=== PATIENT | female | born 1930 | race African-American/Black ===

== ENCOUNTER 2016-07-03 12:59 | Inpatient (IN) | payer MEDICARE, BC ==
[~2016-07-03] VITALS: Ht 162.6 cm; Wt 65.8 kg
[2016-07-03 13:54] VITALS: BP 144/93
[2016-07-03 14:00] VITALS: BP 144/93
[2016-07-03] MEDS: FUROSEMIDE 20MG/2ML VIAL IVP SCH ×2 (15:51→21:58)
[2016-07-03 16:00] VITALS: BP 167/108
[2016-07-03] MEDS ORDERED: IPRATROPIUM/ALBUTEROL 0.5-3(2.5)MG/3ML NEB HHN PRN (16:00)
[2016-07-03] MEDS ORDERED: CLONIDINE 0.1MG TABLET PO PRN (16:30)
[2016-07-03] MEDS ORDERED: APIXABAN 5 MG TABLET PO SCH (17:15)
[2016-07-03] MEDS: AMLODIPINE 5MG TABLET PO SCH (17:17)
[2016-07-03 17:22] LABS: BASOPHILS % 0.6 % (0.0-2.0); EOSINOPHILS % 0.5 % (0.0-5.0); HEMATOCRIT. 38.3 % (36.0-48.0); HEMOGLOBIN. 12.7 g/dL (12.0-16.0); LYMPHOCYTES % 9.3 % (20.0-50.0); MEAN CORPUSCULAR HGB CONC 33.2 g/dL (31.0-37.0); MEAN CORPUSCULAR VOLUME 93.5 fL (81.0-99.0); MEAN PLATELET VOLUME 9.2 fl (7.4-10.4); MONOCYTES % 8.4 % (2.0-8.0); NEUTROPHILS % 81.2 % (40.0-76.0); PLATELET 192 x1000/uL (130-400); WHITE BLOOD COUNT 7.4 x1000/uL (4.5-11.0)
[2016-07-03 17:35] LABS: ALANINE AMINOTRANSFERASE 30 IU/L (13-61); ALBUMIN 3.1 g/dL (3.4-5.0); ANION GAP 12; CALCIUM 8.7 mg/dL (8.5-10.1); CARBON DIOXIDE 33 mEq/L (21-32); CHLORIDE 101 mEq/L (98-107); INDEX HEMOLYSI 1 (1-3); INDEX ICTERIC 1 (1-4); INDEX LIPEMIC 1 (1-3); NT PRO B-TYPE NATRIURETIC PEP 4775 pg/mL (5-125); UREA NITROGEN BLOOD 16 mg/dL (7-21); eGFR > 60 mL/min (>60)
[2016-07-03] MEDS: DILTIAZEM HCL 30MG TABLET PO SCH ×2 (17:37→21:59)
[2016-07-03] MEDS: POTASSIUM CHLORIDE 20MEQ TABLET SR PO SCH (18:44)
[2016-07-03] MEDS: APIXABAN 2.5 MG TABLET PO SCH (18:44)
[2016-07-03 20:00] VITALS: BP 115/79
[2016-07-03] MEDS ORDERED: DILTIAZEM HCL 30MG TABLET PO SCH (21:00)
[2016-07-03] MEDS ORDERED: MONTELUKAST SODIUM 10MG TABLET PO SCH (21:00)
[2016-07-03] MEDS: MONTELUKAST SODIUM 10MG TABLET PO SCH (21:59)
[2016-07-04] VITALS: BP 130/86
[2016-07-04 04:00] VITALS: BP 130/76
[2016-07-04 08:14] VITALS: BP 144/91
[2016-07-04] MEDS: AMLODIPINE 5MG TABLET PO SCH (08:24)
[2016-07-04] MEDS: POTASSIUM CHLORIDE 20MEQ TABLET SR PO SCH (08:24)
[2016-07-04] MEDS: APIXABAN 2.5 MG TABLET PO SCH ×2 (08:25→16:18)
[2016-07-04] MEDS: DILTIAZEM HCL 30MG TABLET PO SCH ×2 (08:25→20:40)
[2016-07-04] MEDS: EZETIMIBE 10MG TABLET PO SCH (08:25)
[2016-07-04] MEDS ORDERED: APIXABAN 5 MG TABLET PO SCH (09:00)
[2016-07-04] MEDS ORDERED: EZETIMIBE 10MG TABLET PO SCH (09:00)
[2016-07-04 12:00] VITALS: BP 100/51
[2016-07-04] MEDS: CEFTRIAXONE 1 G PREMIX 50 ML IV SCH (13:30)
[2016-07-04] MEDS: AZITHROMYCIN 500 MG in DEXT 5% WATER 250 ML IV SCH (15:50)
[2016-07-04 16:20] VITALS: BP 119/80
[2016-07-04 20:00] VITALS: BP 118/68
[2016-07-04] MEDS: MONTELUKAST SODIUM 10MG TABLET PO SCH (20:39)
[2016-07-04] MEDS: PRIMIDONE 50MG TABLET PO SCH (20:41)
[2016-07-05] VITALS: BP 121/77
[2016-07-05 04:00] VITALS: BP 142/98
[2016-07-05 08:24] VITALS: BP 147/88
[2016-07-05] MEDS: POTASSIUM CHLORIDE 20MEQ TABLET SR PO SCH (08:31)
[2016-07-05] MEDS: APIXABAN 2.5 MG TABLET PO SCH ×2 (08:31→16:26)
[2016-07-05] MEDS: DILTIAZEM HCL 30MG TABLET PO SCH ×2 (08:31→20:12)
[2016-07-05] MEDS: FUROSEMIDE 20MG/2ML VIAL IVP SCH (08:31)
[2016-07-05] MEDS: EZETIMIBE 10MG TABLET PO SCH (08:31)
[2016-07-05] MEDS: AMLODIPINE 5MG TABLET PO SCH (08:31)
[2016-07-05] MEDS: AZITHROMYCIN 500 MG in DEXT 5% WATER 250 ML IV SCH (09:46)
[2016-07-05] MEDS: IPRATROPIUM/ALBUTEROL 0.5-3(2.5)MG/3ML NEB HHN SCH ×3 (11:42→20:48)
[2016-07-05] MEDS: CEFTRIAXONE 1 G PREMIX 50 ML IV SCH (11:53)
[2016-07-05 12:00] VITALS: BP 100/66
[2016-07-05] MEDS ORDERED: CELE200C PO (13:19)
[2016-07-05 16:00] VITALS: BP 102/56
[2016-07-05 17:57] LABS: BASOPHILS % 0.5 % (0.0-2.0); HEMATOCRIT. 36.7 % (36.0-48.0); LYMPHOCYTES % 14.8 % (20.0-50.0); MEAN CORPUSCULAR HEMOGLOBIN 30.6 pg (28.0-32.0); MEAN CORPUSCULAR HGB CONC 32.7 g/dL (31.0-37.0); MEAN CORPUSCULAR VOLUME 93.7 fL (81.0-99.0); MONOCYTES % 14.9 % (2.0-8.0); NEUTROPHILS % 68.8 % (40.0-76.0); PLATELET 193 x1000/uL (130-400); RED BLOOD CELL COUNT 3.92 mill/uL (4.2-5.4); RED CELL DISTRIBUTION WIDTH 16.6 % (11.6-14.6); WHITE BLOOD COUNT 7.1 x1000/uL (4.5-11.0)
[2016-07-05 18:14] LABS: ANION GAP 9; CALCIUM 8.3 mg/dL (8.5-10.1); CARBON DIOXIDE 36 mEq/L (21-32); CHLORIDE 99 mEq/L (98-107); INDEX HEMOLYSI 1 (1-3); INDEX ICTERIC 1 (1-4); INDEX LIPEMIC 1 (1-3); UREA NITROGEN BLOOD 15 mg/dL (7-21); eGFR > 60 mL/min (>60)
[2016-07-05 20:00] VITALS: BP 97/51
[2016-07-05] MEDS: MONTELUKAST SODIUM 10MG TABLET PO SCH (20:11)
[2016-07-05] MEDS: PRIMIDONE 50MG TABLET PO SCH (20:11)
[2016-07-06] VITALS: BP 110/66
[2016-07-06] MEDS: IPRATROPIUM/ALBUTEROL 0.5-3(2.5)MG/3ML NEB HHN SCH ×5 (00:36→15:52)
[2016-07-06 04:00] VITALS: BP 119/83
[2016-07-06 06:41] LABS: BASOPHILS % 0.9 % (0.0-2.0); EOSINOPHILS % 1.6 % (0.0-5.0); HEMATOCRIT. 36.6 % (36.0-48.0); HEMOGLOBIN. 12.1 g/dL (12.0-16.0); LYMPHOCYTES % 15.6 % (20.0-50.0); MEAN CORPUSCULAR HEMOGLOBIN 30.8 pg (28.0-32.0); MEAN CORPUSCULAR HGB CONC 33.2 g/dL (31.0-37.0); MEAN CORPUSCULAR VOLUME 92.6 fL (81.0-99.0); MONOCYTES % 12.8 % (2.0-8.0); NEUTROPHILS % 69.1 % (40.0-76.0); PLATELET 182 x1000/uL (130-400); RED BLOOD CELL COUNT 3.95 mill/uL (4.2-5.4); RED CELL DISTRIBUTION WIDTH 16.5 % (11.6-14.6); WHITE BLOOD COUNT 5.8 x1000/uL (4.5-11.0)
[2016-07-06 07:06] LABS: ANION GAP 10; CALCIUM 8.2 mg/dL (8.5-10.1); CARBON DIOXIDE 34 mEq/L (21-32); CHLORIDE 97 mEq/L (98-107); INDEX HEMOLYSI 1 (1-3); INDEX ICTERIC 1 (1-4); INDEX LIPEMIC 1 (1-3); UREA NITROGEN BLOOD 16 mg/dL (7-21); eGFR > 60 mL/min (>60)
[2016-07-06 08:00] VITALS: BP 122/84
[2016-07-06] MEDS: AMLODIPINE 5MG TABLET PO SCH (08:54)
[2016-07-06] MEDS: POTASSIUM CHLORIDE 20MEQ TABLET SR PO SCH (08:54)
[2016-07-06] MEDS: EZETIMIBE 10MG TABLET PO SCH (08:54)
[2016-07-06] MEDS: FUROSEMIDE 20MG/2ML VIAL IVP SCH (08:55)
[2016-07-06] MEDS: DILTIAZEM HCL 30MG TABLET PO SCH (08:55)
[2016-07-06] MEDS: APIXABAN 2.5 MG TABLET PO SCH ×2 (08:55→17:20)
[2016-07-06] MEDS: AZITHROMYCIN 500 MG in DEXT 5% WATER 250 ML IV SCH (08:56)
[2016-07-06] MEDS ORDERED: PRIMIDONE 50MG TABLET PO SCH (09:00)
[2016-07-06] MEDS: CEFTRIAXONE 1 G PREMIX 50 ML IV SCH (10:24)
[2016-07-06 16:00] VITALS: BP 100/62
[2016-07-06 16:30] VITALS: BP 100/62
== END 2016-07-06 17:15 | DRG 682 ==
LOC: 7EST 12:59 → 5WST 07-04 11:02
PROVIDERS: ADMIT Internal Medicine; ATTEND Internal Medicine
DX: N17.9 Acute kidney failure, unspecified (principal); J18.9 Pneumonia, unspecified organism; G45.9 Transient cerebral ischemic attack, unspecified; J44.0 Chronic obstructive pulmonary disease with (acute) lower respiratory infection; E78.00 Pure hypercholesterolemia, unspecified; E78.5 Hyperlipidemia, unspecified; M81.0 Age-related osteoporosis without current pathological fracture; J45.909 Unspecified asthma, uncomplicated; I50.9 Heart failure, unspecified; F03.90 Unspecified dementia, unspecified severity, without behavioral disturbance, psychotic disturbance, mood disturbance, and anxiety; M19.90 Unspecified osteoarthritis, unspecified site; J44.9 Chronic obstructive pulmonary disease, unspecified; I48.2 Chronic atrial fibrillation; J31.0 Chronic rhinitis; Z86.73 Personal history of transient ischemic attack (TIA), and cerebral infarction without residual deficits; Z91.19 Patient's noncompliance with other medical treatment and regimen; Z85.3 Personal history of malignant neoplasm of breast
CPT/HCPCS: 36415; 70551; 71010; 80048; 80053; 83880; 85025; 92523; 93970; 94640; 97116; 97162; 97166; 97530; 97535; A6261; J0456; J0696; J1940; J7040; J7060; J7620

== ENCOUNTER 2017-01-16 19:19 | Inpatient (IN) | payer MEDICARE, BC ==
[~2017-01-16] VITALS: Ht 162.6 cm; Wt 53.5 kg
[~2017-01-16 19:19] MED LIST: APIX2.5T PO; CELE200C PO; DILT30TA3 PO; EZET10TA26 PO; FURO-152 PO; OMEP40CA34 PO; POTA-9 PO
[2017-01-16 22:23] LABS: HEMATOCRIT. 37.9 % (36.0-48.0); HEMOGLOBIN. 12.1 g/dL (12.0-16.0); MEAN CORPUSCULAR HEMOGLOBIN 27.9 pg (28.0-32.0); MEAN CORPUSCULAR VOLUME 87.4 fL (81.0-99.0); MEAN PLATELET VOLUME 8.8 fl (7.4-10.4); PLATELET 218 x1000/uL (130-400); RED BLOOD CELL COUNT 4.34 mill/uL (4.2-5.4); RED CELL DISTRIBUTION WIDTH 18.6 % (11.6-14.6)
[2017-01-16 22:25] LABS: CHLORIDE 103 mEq/L (98-107)
[2017-01-16 22:26] LABS: INR 1.3; PROTHROMBIN TIME 13.4 sec (9.4-11.6)
[2017-01-16 22:29] LABS: CARBON DIOXIDE 30 mEq/L (21-32)
[2017-01-16 22:47] LABS: PLATELET ESTIMATE NORMAL
[2017-01-16] MEDS ORDERED: AMPICILLIN SOD/SULBACTAM NA 3 G in SODIUM CHLORIDE 0.9% 100 ML IV SCH (23:00)
[2017-01-17] MEDS: HYDROCODONE/ACETAMINOPHEN 10/325MG TABLET PO PRN (04:03)
[2017-01-17 05:00] VITALS: BP 111/53
[2017-01-17 06:00] VITALS: BP 111/53
[2017-01-17] MEDS ORDERED: IPRATROPIUM/ALBUTEROL 0.5-3(2.5)MG/3ML NEB HHN PRN (07:45)
[2017-01-17 08:00] VITALS: BP 104/64
[2017-01-17] MEDS: EZETIMIBE 10MG TABLET PO SCH (08:32)
[2017-01-17] MEDS: APIXABAN 2.5 MG TABLET PO SCH ×2 (08:32→17:27)
[2017-01-17] MEDS: FUROSEMIDE 20MG/2ML VIAL IVP SCH (08:32)
[2017-01-17] MEDS: CELECOXIB 200MG CAPSULE PO SCH ×2 (08:32→17:27)
[2017-01-17] MEDS: DILTIAZEM HCL 30MG TABLET PO SCH ×2 (09:00→21:00)
[2017-01-17] MEDS: POTASSIUM CHLORIDE 10MEQ TABLET SR PO SCH (09:00)
[2017-01-17] MEDS: CEFTRIAXONE 1 G PREMIX 50 ML IV SCH (10:04)
[2017-01-17 12:00] VITALS: BP 112/64
[2017-01-17 16:00] VITALS: BP 105/62
[2017-01-17 20:18] VITALS: BP 104/60
[2017-01-17] MEDS: SILVER SULFADIAZINE 1% CREAM 50GM TOP SCH (21:59)
[2017-01-18 00:29] VITALS: BP 108/72
[2017-01-18 04:00] VITALS: BP 103/64
[2017-01-18] MEDS: HYDROCODONE/ACETAMINOPHEN 10/325MG TABLET PO PRN ×2 (05:01→20:14)
[2017-01-18 07:00] LABS: HEMATOCRIT. 36.8 % (36.0-48.0); MEAN CORPUSCULAR HEMOGLOBIN 27.9 pg (28.0-32.0); MEAN CORPUSCULAR VOLUME 85.5 fL (81.0-99.0); PLATELET 191 x1000/uL (130-400); RED BLOOD CELL COUNT 4.31 mill/uL (4.2-5.4); RED CELL DISTRIBUTION WIDTH 18.1 % (11.6-14.6)
[2017-01-18 08:00] VITALS: BP 101/59
[2017-01-18 08:09] LABS: CARBON DIOXIDE 30 mEq/L (21-32); CHLORIDE 102 mEq/L (98-107)
[2017-01-18] MEDS: CELECOXIB 200MG CAPSULE PO SCH ×2 (08:44→17:14)
[2017-01-18] MEDS: APIXABAN 2.5 MG TABLET PO SCH ×2 (08:45→17:14)
[2017-01-18] MEDS: EZETIMIBE 10MG TABLET PO SCH (08:45)
[2017-01-18] MEDS: FUROSEMIDE 20MG/2ML VIAL IVP SCH (08:45)
[2017-01-18] MEDS: SILVER SULFADIAZINE 1% CREAM 50GM TOP SCH (08:45)
[2017-01-18] MEDS: CEFTRIAXONE 1 G PREMIX 50 ML IV SCH (08:45)
[2017-01-18] MEDS: POTASSIUM CHLORIDE 10MEQ TABLET SR PO SCH (08:45)
[2017-01-18] MEDS: DILTIAZEM HCL 30MG TABLET PO SCH ×2 (08:46→21:00)
[2017-01-18 12:00] VITALS: BP 102/56
[2017-01-18 14:29] LABS: PLATELET ESTIMATE NORMAL
[2017-01-18 16:00] VITALS: BP 116/58
[2017-01-18 20:00] VITALS: BP 110/56
[2017-01-19] VITALS: BP 102/53
[2017-01-19 04:00] VITALS: BP 100/48
[2017-01-19] MEDS: HYDROCODONE/ACETAMINOPHEN 10/325MG TABLET PO PRN ×3 (04:13→21:17)
[2017-01-19 07:34] LABS: HEMATOCRIT. 36.2 % (36.0-48.0); HEMOGLOBIN. 11.8 g/dL (12.0-16.0); MEAN CORPUSCULAR VOLUME 86.2 fL (81.0-99.0); MEAN PLATELET VOLUME 9.2 fl (7.4-10.4); PLATELET 195 x1000/uL (130-400); RED CELL DISTRIBUTION WIDTH 18.3 % (11.6-14.6)
[2017-01-19 08:00] VITALS: BP 104/63
[2017-01-19 08:09] LABS: CARBON DIOXIDE 29 mEq/L (21-32); CHLORIDE 103 mEq/L (98-107)
[2017-01-19] MEDS: DILTIAZEM HCL 30MG TABLET PO SCH ×2 (09:00→21:17)
[2017-01-19] MEDS: APIXABAN 2.5 MG TABLET PO SCH ×2 (09:42→19:26)
[2017-01-19] MEDS: FUROSEMIDE 20MG/2ML VIAL IVP SCH (09:42)
[2017-01-19] MEDS: EZETIMIBE 10MG TABLET PO SCH (09:42)
[2017-01-19] MEDS: CEFTRIAXONE 1 G PREMIX 50 ML IV SCH (09:43)
[2017-01-19] MEDS: POTASSIUM CHLORIDE 10MEQ TABLET SR PO SCH (09:43)
[2017-01-19] MEDS: SILVER SULFADIAZINE 1% CREAM 50GM TOP SCH (09:50)
[2017-01-19] MEDS: CELECOXIB 200MG CAPSULE PO SCH ×2 (09:50→19:26)
[2017-01-19 12:00] VITALS: BP 100/68
[2017-01-19 16:00] VITALS: BP 104/62
[2017-01-19 20:00] VITALS: BP 117/70
[2017-01-19 22:51] LABS: PLATELET ESTIMATE NORMAL
[2017-01-20] VITALS: BP 114/56
[2017-01-20 04:00] VITALS: BP 94/55
[2017-01-20 07:20] LABS: HEMATOCRIT. 35.9 % (36.0-48.0); HEMOGLOBIN. 11.6 g/dL (12.0-16.0); MEAN CORPUSCULAR HEMOGLOBIN 27.9 pg (28.0-32.0); MEAN CORPUSCULAR VOLUME 86.6 fL (81.0-99.0); MEAN PLATELET VOLUME 9.4 fl (7.4-10.4); PLATELET 198 x1000/uL (130-400); RED BLOOD CELL COUNT 4.15 mill/uL (4.2-5.4); RED CELL DISTRIBUTION WIDTH 17.9 % (11.6-14.6)
[2017-01-20 08:00] VITALS: BP 127/74
[2017-01-20 08:43] LABS: CARBON DIOXIDE 30 mEq/L (21-32); CHLORIDE 102 mEq/L (98-107); PHOSPHORUS 3.1 mg/dL (2.5-4.9)
[2017-01-20 10:03] LABS: PLATELET ESTIMATE NORMAL
[2017-01-20] MEDS: CELECOXIB 200MG CAPSULE PO SCH ×2 (10:51→17:45)
[2017-01-20] MEDS: CEFTRIAXONE 1 G PREMIX 50 ML IV SCH (10:51)
[2017-01-20] MEDS: FUROSEMIDE 20MG/2ML VIAL IVP SCH (10:52)
[2017-01-20] MEDS: POTASSIUM CHLORIDE 10MEQ TABLET SR PO SCH (10:52)
[2017-01-20] MEDS: DILTIAZEM HCL 30MG TABLET PO SCH ×2 (10:52→20:13)
[2017-01-20] MEDS: EZETIMIBE 10MG TABLET PO SCH (10:53)
[2017-01-20] MEDS: APIXABAN 2.5 MG TABLET PO SCH ×2 (10:53→17:45)
[2017-01-20] MEDS: SILVER SULFADIAZINE 1% CREAM 50GM TOP SCH (10:54)
[2017-01-20 12:00] VITALS: BP 114/67
[2017-01-20] MEDS: HYDROCODONE/ACETAMINOPHEN 10/325MG TABLET PO PRN (12:28)
[2017-01-20] MEDS ORDERED: VANCOMYCIN 1 G PREMIX 200 ML IV SCH ×2 (13:00→15:00)
[2017-01-20 16:00] VITALS: BP 99/56
[2017-01-20 20:00] VITALS: BP 114/52
[2017-01-20 23:38] LABS: CLARITY URINE CLOUDY (CLEAR); COLOR URINE DARK YELLOW (YELLOW); GLUCOSE URINE NEGATIVE (NEGATIVE); KETONES URINE NEGATIVE (NEGATIVE); LEUKOCYTE ESTERASE URINE NEGATIVE (NEGATIVE); NITRITE URINE NEGATIVE (NEGATIVE); OCCULT BLOOD URINE NEGATIVE (NEGATIVE); PROTEIN URINE 1+ (NEGATIVE)
[2017-01-21] VITALS: BP 112/61
[2017-01-21 04:00] VITALS: BP 95/61
[2017-01-21] MEDS: VANCOMYCIN 750 MG PREMIX 150 ML IV SCH ×2 (05:21→23:45)
[2017-01-21 08:00] VITALS: BP 128/83
[2017-01-21] MEDS: FUROSEMIDE 20MG/2ML VIAL IVP SCH (09:25)
[2017-01-21] MEDS: CELECOXIB 200MG CAPSULE PO SCH ×2 (09:25→18:57)
[2017-01-21] MEDS: CEFTRIAXONE 1 G PREMIX 50 ML IV SCH (09:25)
[2017-01-21] MEDS: EZETIMIBE 10MG TABLET PO SCH (09:26)
[2017-01-21] MEDS: POTASSIUM CHLORIDE 10MEQ TABLET SR PO SCH (09:26)
[2017-01-21] MEDS: APIXABAN 2.5 MG TABLET PO SCH ×2 (09:26→18:57)
[2017-01-21] MEDS: DILTIAZEM HCL 30MG TABLET PO SCH ×2 (09:26→20:36)
[2017-01-21] MEDS: SILVER SULFADIAZINE 1% CREAM 50GM TOP SCH (09:33)
[2017-01-21 12:00] VITALS: BP 96/44
[2017-01-21 12:07] LABS: HEMATOCRIT. 35.4 % (36.0-48.0); HEMOGLOBIN. 11.6 g/dL (12.0-16.0); MEAN CORPUSCULAR VOLUME 85.7 fL (81.0-99.0); MEAN PLATELET VOLUME 8.9 fl (7.4-10.4); PLATELET 229 x1000/uL (130-400); RED BLOOD CELL COUNT 4.13 mill/uL (4.2-5.4); RED CELL DISTRIBUTION WIDTH 17.9 % (11.6-14.6)
[2017-01-21 12:44] LABS: CARBON DIOXIDE 32 mEq/L (21-32); CHLORIDE 100 mEq/L (98-107)
[2017-01-21 12:47] LABS: PLATELET ESTIMATE NORMAL
[2017-01-21 16:00] VITALS: BP 111/57
[2017-01-21 20:00] VITALS: BP 116/61
[2017-01-22] VITALS: BP 122/69
[2017-01-22 04:00] VITALS: BP 123/67
[2017-01-22 07:24] LABS: CARBON DIOXIDE 28 mEq/L (21-32); CHLORIDE 98 mEq/L (98-107)
[2017-01-22 07:39] LABS: HEMATOCRIT. 37.1 % (36.0-48.0); MEAN CORPUSCULAR HEMOGLOBIN 28.1 pg (28.0-32.0); MEAN CORPUSCULAR VOLUME 86.8 fL (81.0-99.0); MEAN PLATELET VOLUME 9.1 fl (7.4-10.4); PLATELET 232 x1000/uL (130-400); RED BLOOD CELL COUNT 4.27 mill/uL (4.2-5.4); RED CELL DISTRIBUTION WIDTH 18.2 % (11.6-14.6)
[2017-01-22 08:00] VITALS: BP 110/62
[2017-01-22] MEDS: CELECOXIB 200MG CAPSULE PO SCH ×2 (09:25→17:14)
[2017-01-22] MEDS: DILTIAZEM HCL 30MG TABLET PO SCH ×2 (09:25→20:47)
[2017-01-22] MEDS: SILVER SULFADIAZINE 1% CREAM 50GM TOP SCH (09:25)
[2017-01-22] MEDS: APIXABAN 2.5 MG TABLET PO SCH ×2 (09:25→17:14)
[2017-01-22] MEDS: EZETIMIBE 10MG TABLET PO SCH (09:25)
[2017-01-22] MEDS: CEFTRIAXONE 1 G PREMIX 50 ML IV SCH (09:25)
[2017-01-22 12:00] VITALS: BP 100/53
[2017-01-22 13:22] LABS: PLATELET ESTIMATE NORMAL
[2017-01-22 16:00] VITALS: BP 118/68
[2017-01-22] MEDS: VANCOMYCIN 750 MG PREMIX 150 ML IV SCH (17:14)
[2017-01-22 20:00] VITALS: BP 103/54
[2017-01-23] VITALS: BP 110/76
[2017-01-23 04:00] VITALS: BP 107/64
[2017-01-23 05:26] LABS: HEMATOCRIT. 34.3 % (36.0-48.0); MEAN CORPUSCULAR HEMOGLOBIN 27.8 pg (28.0-32.0); MEAN CORPUSCULAR VOLUME 86.3 fL (81.0-99.0); MEAN PLATELET VOLUME 8.6 fl (7.4-10.4); PLATELET 251 x1000/uL (130-400); RED BLOOD CELL COUNT 3.98 mill/uL (4.2-5.4); RED CELL DISTRIBUTION WIDTH 18.1 % (11.6-14.6)
[2017-01-23 06:25] LABS: CARBON DIOXIDE 31 mEq/L (21-32); CHLORIDE 100 mEq/L (98-107)
[2017-01-23 06:28] LABS: PHOSPHORUS 2.6 mg/dL (2.5-4.9)
[2017-01-23 08:00] VITALS: BP 109/69
[2017-01-23] MEDS: APIXABAN 2.5 MG TABLET PO SCH ×2 (08:58→16:43)
[2017-01-23] MEDS: EZETIMIBE 10MG TABLET PO SCH (08:58)
[2017-01-23] MEDS: CEFTRIAXONE 1 G PREMIX 50 ML IV SCH (08:58)
[2017-01-23] MEDS: CELECOXIB 200MG CAPSULE PO SCH ×2 (08:58→16:43)
[2017-01-23] MEDS: DILTIAZEM HCL 30MG TABLET PO SCH ×2 (09:00→21:31)
[2017-01-23] MEDS: SILVER SULFADIAZINE 1% CREAM 50GM TOP SCH (09:00)
[2017-01-23] MEDS: VANCOMYCIN 750 MG PREMIX 150 ML IV SCH (11:31)
[2017-01-23 12:00] VITALS: BP 117/67
[2017-01-23 16:00] VITALS: BP 107/62
[2017-01-23 20:00] VITALS: BP 121/88
[2017-01-23 22:57] LABS: PLATELET ESTIMATE NORMAL
[2017-01-24 00:01] VITALS: BP 101/54
[2017-01-24] MEDS ORDERED: MORPHINE SULFATE 4 MG/ML CPJ (NOT FOR IM USE) IV PRN (02:45)
[2017-01-24] MEDS ORDERED: ACETAMINOPHEN 325MG TABLET PO PRN (02:45)
[2017-01-24 04:00] VITALS: BP 108/59
[2017-01-24] MEDS: VANCOMYCIN 750 MG PREMIX 150 ML IV SCH (05:14)
[2017-01-24 07:24] LABS: CARBON DIOXIDE 32 mEq/L (21-32); CHLORIDE 102 mEq/L (98-107)
[2017-01-24 07:44] LABS: HEMATOCRIT. 35.3 % (36.0-48.0); HEMOGLOBIN. 11.3 g/dL (12.0-16.0); MEAN CORPUSCULAR HEMOGLOBIN 27.9 pg (28.0-32.0); MEAN CORPUSCULAR VOLUME 87.2 fL (81.0-99.0); MEAN PLATELET VOLUME 8.9 fl (7.4-10.4); PLATELET 246 x1000/uL (130-400); RED BLOOD CELL COUNT 4.05 mill/uL (4.2-5.4); RED CELL DISTRIBUTION WIDTH 18.3 % (11.6-14.6)
[2017-01-24 08:00] VITALS: BP 111/68
[2017-01-24] MEDS: APIXABAN 2.5 MG TABLET PO SCH ×2 (08:23→17:35)
[2017-01-24] MEDS: CEFTRIAXONE 1 G PREMIX 50 ML IV SCH (08:23)
[2017-01-24] MEDS: TRAMADOL 50MG TABLET PO PRN (08:25)
[2017-01-24] MEDS: EZETIMIBE 10MG TABLET PO SCH (08:25)
[2017-01-24] MEDS: CELECOXIB 200MG CAPSULE PO SCH ×2 (08:25→17:35)
[2017-01-24] MEDS: SILVER SULFADIAZINE 1% CREAM 50GM TOP SCH (08:26)
[2017-01-24] MEDS: DILTIAZEM HCL 30MG TABLET PO SCH ×2 (08:26→20:42)
[2017-01-24 12:00] VITALS: BP 97/48
[2017-01-24 14:21] LABS: PLATELET ESTIMATE NORMAL
[2017-01-24 16:00] VITALS: BP 115/63
[2017-01-24 20:31] VITALS: BP 106/59
[2017-01-25] VITALS: BP 96/54
[2017-01-25] MEDS: VANCOMYCIN 750 MG PREMIX 150 ML IV SCH ×2 (00:15→17:38)
[2017-01-25 04:00] VITALS: BP 103/55
[2017-01-25 08:00] VITALS: BP 110/65
[2017-01-25] MEDS: EZETIMIBE 10MG TABLET PO SCH (08:33)
[2017-01-25] MEDS: CELECOXIB 200MG CAPSULE PO SCH ×2 (08:33→17:38)
[2017-01-25] MEDS: DILTIAZEM HCL 30MG TABLET PO SCH ×2 (08:33→21:10)
[2017-01-25] MEDS: APIXABAN 2.5 MG TABLET PO SCH ×2 (08:33→17:38)
[2017-01-25] MEDS: TRAMADOL 50MG TABLET PO PRN (08:34)
[2017-01-25] MEDS: SILVER SULFADIAZINE 1% CREAM 50GM TOP SCH (08:35)
[2017-01-25 12:00] VITALS: BP 117/71
[2017-01-25 16:00] VITALS: BP 124/65
[2017-01-25 20:00] VITALS: BP 129/57
[2017-01-26] VITALS: BP 105/64
[2017-01-26 04:00] VITALS: BP 118/67
[2017-01-26 05:56] LABS: HEMATOCRIT. 35.2 % (36.0-48.0); HEMOGLOBIN. 11.3 g/dL (12.0-16.0); MEAN CORPUSCULAR HEMOGLOBIN 27.9 pg (28.0-32.0); MEAN CORPUSCULAR VOLUME 86.9 fL (81.0-99.0); MEAN PLATELET VOLUME 8.8 fl (7.4-10.4); PLATELET 237 x1000/uL (130-400); RED BLOOD CELL COUNT 4.06 mill/uL (4.2-5.4); RED CELL DISTRIBUTION WIDTH 18.1 % (11.6-14.6)
[2017-01-26 06:19] LABS: CARBON DIOXIDE 34 mEq/L (21-32); CHLORIDE 98 mEq/L (98-107)
[2017-01-26 08:00] VITALS: BP 107/64
[2017-01-26] MEDS: EZETIMIBE 10MG TABLET PO SCH (08:50)
[2017-01-26] MEDS: CELECOXIB 200MG CAPSULE PO SCH (08:50)
[2017-01-26] MEDS: APIXABAN 2.5 MG TABLET PO SCH (08:50)
[2017-01-26] MEDS: DILTIAZEM HCL 30MG TABLET PO SCH (08:55)
[2017-01-26] MEDS: SILVER SULFADIAZINE 1% CREAM 50GM TOP SCH (08:55)
[2017-01-26 12:00] VITALS: BP 110/70
[2017-01-26 13:20] VITALS: BP 110/70
[2017-01-26] MEDS: VANCOMYCIN 750 MG PREMIX 150 ML IV SCH (15:12)
[2017-01-26 16:00] VITALS: BP 130/58
[2017-01-26 21:22] LABS: PLATELET ESTIMATE NORMAL
== END 2017-01-26 16:45 | DRG 871 ==
LOC: ER 23:01 → 7WST 23:28 → ENRESERV 01-17 03:39
PROVIDERS: ADMIT Internal Medicine; ATTEND Internal Medicine
DX: A41.9 Sepsis, unspecified organism (principal); G93.40 Encephalopathy, unspecified; E46 Unspecified protein-calorie malnutrition; L03.115 Cellulitis of right lower limb; D64.9 Anemia, unspecified; I48.91 Unspecified atrial fibrillation; L89.899 Pressure ulcer of other site, unspecified stage; J45.909 Unspecified asthma, uncomplicated; I10 Essential (primary) hypertension; M19.90 Unspecified osteoarthritis, unspecified site; M75.01 Adhesive capsulitis of right shoulder; M75.02 Adhesive capsulitis of left shoulder; Z85.3 Personal history of malignant neoplasm of breast; Z92.21 Personal history of antineoplastic chemotherapy; Z92.3 Personal history of irradiation; Z68.20 Body mass index [BMI] 20.0-20.9, adult
CPT/HCPCS: 36415; 71010; 80048; 80053; 80202; 81001; 83605; 83735; 84100; 85025; 85610; 85651; 87040; 87086; 93005; 93923; 93970; 94640; 96365; 97110; 97116; 97162; 97166; 97530; 99285; A6261; C1893; J0295; J0696; J1940; J3370; J7040; J7050; J7620

== ENCOUNTER 2017-01-26 16:50 | Inpatient (IN) | payer MEDICARE, BC ==
[~2017-01-26] VITALS: Ht 162.6 cm; Wt 56.2 kg
[2017-01-26 16:45] VITALS: BP 127/81
[2017-01-26] MEDS ORDERED: IPRATROPIUM/ALBUTEROL 0.5-3(2.5)MG/3ML NEB HHN PRN (19:45)
[2017-01-26] MEDS ORDERED: TRAMADOL 50MG TABLET PO PRN (19:45)
[2017-01-26 20:00] VITALS: BP 123/71
[2017-01-26 20:35] VITALS: BP 127/81
[2017-01-26] MEDS: DILTIAZEM HCL 30MG TABLET PO SCH (22:01)
[2017-01-26] MEDS: SULFAMETHOXAZOLE/TRIMETHOPRIM 800/160MG TABLET PO SCH (22:01)
[2017-01-26] MEDS: CELECOXIB 100MG CAPSULE PO SCH (22:01)
[2017-01-26] MEDS: APIXABAN 2.5 MG TABLET PO SCH (22:02)
[2017-01-26] MEDS: CEPHALEXIN 500MG CAPSULE PO SCH (22:02)
[2017-01-27 06:40] LABS: HEMATOCRIT. 35.6 % (36.0-48.0); HEMOGLOBIN. 11.8 g/dL (12.0-16.0); MEAN CORPUSCULAR HEMOGLOBIN 28.5 pg (28.0-32.0); MEAN CORPUSCULAR VOLUME 86.1 fL (81.0-99.0); MEAN PLATELET VOLUME 8.5 fl (7.4-10.4); PLATELET 244 x1000/uL (130-400); RED BLOOD CELL COUNT 4.13 mill/uL (4.2-5.4); RED CELL DISTRIBUTION WIDTH 17.5 % (11.6-14.6)
[2017-01-27 07:53] LABS: CHLORIDE 97 mEq/L (98-107)
[2017-01-27 08:00] VITALS: BP 140/78
[2017-01-27 08:03] LABS: CARBON DIOXIDE 30 mEq/L (21-32); PREALBUMIN 6.7 mg/dL (20.0-40.0)
[2017-01-27] MEDS ORDERED: VANCOMYCIN 750 MG PREMIX 150 ML IV SCH (09:00)
[2017-01-27] MEDS: APIXABAN 2.5 MG TABLET PO SCH ×2 (09:42→16:49)
[2017-01-27] MEDS: CEPHALEXIN 500MG CAPSULE PO SCH ×3 (09:43→21:34)
[2017-01-27] MEDS: EZETIMIBE 10MG TABLET PO SCH (09:43)
[2017-01-27] MEDS: CELECOXIB 100MG CAPSULE PO SCH ×2 (09:43→16:49)
[2017-01-27] MEDS: DILTIAZEM HCL 30MG TABLET PO SCH ×3 (09:43→21:34)
[2017-01-27] MEDS: SULFAMETHOXAZOLE/TRIMETHOPRIM 800/160MG TABLET PO SCH ×2 (09:43→21:33)
[2017-01-27] MEDS: SILVER SULFADIAZINE 1% CREAM 50GM TOP SCH (10:00)
[2017-01-27] MEDS: ASCORBIC ACID 500 MG TABLET PO SCH (10:15)
[2017-01-27] MEDS: ZINC SULFATE 220 MG ( 50 ) CAPSULE PO SCH (10:15)
[2017-01-27 11:48] LABS: CLARITY URINE CLEAR (CLEAR); COLOR URINE DARK YELLOW (YELLOW); GLUCOSE URINE NEGATIVE (NEGATIVE); KETONES URINE NEGATIVE (NEGATIVE); LEUKOCYTE ESTERASE URINE NEGATIVE (NEGATIVE); NITRITE URINE NEGATIVE (NEGATIVE); OCCULT BLOOD URINE NEGATIVE (NEGATIVE); PROTEIN URINE TRACE (NEGATIVE); SPECIFIC GRAVITY URINE 1.021 (1.005-1.030)
[2017-01-27 20:00] VITALS: BP 128/61
[2017-01-27 21:17] LABS: PLATELET ESTIMATE NORMAL
[2017-01-28] MEDS: DILTIAZEM HCL 30MG TABLET PO SCH ×4 (03:00→21:00)
[2017-01-28 06:47] LABS: CARBON DIOXIDE 31 mEq/L (21-32); CHLORIDE 98 mEq/L (98-107)
[2017-01-28 08:00] VITALS: BP 127/70
[2017-01-28] MEDS: SILVER SULFADIAZINE 1% CREAM 50GM TOP SCH (08:09)
[2017-01-28] MEDS: CEPHALEXIN 500MG CAPSULE PO SCH ×3 (08:10→21:16)
[2017-01-28] MEDS: ASCORBIC ACID 500 MG TABLET PO SCH (08:10)
[2017-01-28] MEDS: APIXABAN 2.5 MG TABLET PO SCH ×2 (08:10→16:09)
[2017-01-28] MEDS: ZINC SULFATE 220 MG ( 50 ) CAPSULE PO SCH (08:10)
[2017-01-28] MEDS: SULFAMETHOXAZOLE/TRIMETHOPRIM 800/160MG TABLET PO SCH ×2 (08:10→21:16)
[2017-01-28] MEDS: EZETIMIBE 10MG TABLET PO SCH (08:10)
[2017-01-28] MEDS: CELECOXIB 100MG CAPSULE PO SCH ×2 (08:10→16:09)
[2017-01-28] MEDS ORDERED: SILVER SULFADIAZINE 1% CREAM 50GM TOP SCH (09:00)
[2017-01-28] MEDS: ACETAMINOPHEN 325MG TABLET PO PRN (10:14)
[2017-01-28 20:00] VITALS: BP 119/50
[2017-01-29] MEDS: DILTIAZEM HCL 30MG TABLET PO SCH ×4 (03:00→21:00)
[2017-01-29 07:17] LABS: HEMATOCRIT. 32.8 % (36.0-48.0); HEMOGLOBIN. 10.9 g/dL (12.0-16.0); MEAN CORPUSCULAR HEMOGLOBIN 28.5 pg (28.0-32.0); MEAN CORPUSCULAR VOLUME 85.8 fL (81.0-99.0); MEAN PLATELET VOLUME 8.6 fl (7.4-10.4); PLATELET 264 x1000/uL (130-400); RED BLOOD CELL COUNT 3.83 mill/uL (4.2-5.4)
[2017-01-29 07:49] LABS: CARBON DIOXIDE 32 mEq/L (21-32); CHLORIDE 97 mEq/L (98-107); HDL CHOLESTEROL 30 mg/dL (40-59); LDL CHOLESTEROL 57 mg/dL (5-100); PHOSPHORUS 2.8 mg/dL (2.5-4.9); TOTAL IRON BINDING CAPACITY 286 ug/dL (250-450)
[2017-01-29 08:00] VITALS: BP 118/74
[2017-01-29 08:21] LABS: FOLIC ACID (FOLATE) SERUM 7.3 ng/mL (>5.38)
[2017-01-29] MEDS: SILVER SULFADIAZINE 1% CREAM 50GM TOP SCH (08:42)
[2017-01-29] MEDS: SULFAMETHOXAZOLE/TRIMETHOPRIM 800/160MG TABLET PO SCH ×2 (08:42→22:05)
[2017-01-29] MEDS: CELECOXIB 100MG CAPSULE PO SCH ×2 (08:43→17:56)
[2017-01-29] MEDS: CEPHALEXIN 500MG CAPSULE PO SCH ×3 (08:43→22:05)
[2017-01-29] MEDS: ASCORBIC ACID 500 MG TABLET PO SCH (08:43)
[2017-01-29] MEDS: APIXABAN 2.5 MG TABLET PO SCH ×2 (08:43→17:56)
[2017-01-29] MEDS: ZINC SULFATE 220 MG ( 50 ) CAPSULE PO SCH (08:43)
[2017-01-29] MEDS: EZETIMIBE 10MG TABLET PO SCH (08:43)
[2017-01-29 11:03] LABS: PLATELET ESTIMATE NORMAL
[2017-01-29 19:00] VITALS: BP 97/51
[2017-01-29] MEDS ORDERED: CYANOCOBALAMIN 1000MCG/ML VIAL IM NR (21:45)
[2017-01-30] MEDS: DILTIAZEM HCL 30MG TABLET PO SCH ×4 (03:00→21:00)
[2017-01-30 08:00] VITALS: BP 111/68
[2017-01-30] MEDS: ASCORBIC ACID 500 MG TABLET PO SCH (08:55)
[2017-01-30] MEDS: ZINC SULFATE 220 MG ( 50 ) CAPSULE PO SCH (08:55)
[2017-01-30] MEDS: CELECOXIB 100MG CAPSULE PO SCH ×2 (08:55→17:19)
[2017-01-30] MEDS: APIXABAN 2.5 MG TABLET PO SCH ×2 (08:55→17:19)
[2017-01-30] MEDS: EZETIMIBE 10MG TABLET PO SCH (08:55)
[2017-01-30] MEDS: SULFAMETHOXAZOLE/TRIMETHOPRIM 800/160MG TABLET PO SCH ×2 (08:56→23:27)
[2017-01-30] MEDS: CEPHALEXIN 500MG CAPSULE PO SCH ×3 (08:56→23:28)
[2017-01-30] MEDS: SILVER SULFADIAZINE 1% CREAM 50GM TOP SCH (08:56)
[2017-01-30 20:00] VITALS: BP 115/66
[2017-01-30] MEDS: IRON SUCROSE COMPLEX 100 MG in SODIUM CHLORIDE 0.9% 100 ML IV SCH (23:27)
[2017-01-31] MEDS: DILTIAZEM HCL 30MG TABLET PO SCH ×4 (03:00→21:00)
[2017-01-31 07:35] LABS: HEMATOCRIT. 32.3 % (36.0-48.0); HEMOGLOBIN. 10.6 g/dL (12.0-16.0); MEAN CORPUSCULAR HEMOGLOBIN 28.4 pg (28.0-32.0); MEAN CORPUSCULAR VOLUME 86.7 fL (81.0-99.0); MEAN PLATELET VOLUME 8.5 fl (7.4-10.4); PLATELET 226 x1000/uL (130-400); RED BLOOD CELL COUNT 3.72 mill/uL (4.2-5.4)
[2017-01-31 07:38] LABS: CARBON DIOXIDE 28 mEq/L (21-32); CHLORIDE 97 mEq/L (98-107)
[2017-01-31 08:00] VITALS: BP 111/61
[2017-01-31] MEDS: ZINC SULFATE 220 MG ( 50 ) CAPSULE PO SCH (08:59)
[2017-01-31] MEDS: EZETIMIBE 10MG TABLET PO SCH (08:59)
[2017-01-31] MEDS: APIXABAN 2.5 MG TABLET PO SCH ×2 (09:00→18:34)
[2017-01-31] MEDS: ASCORBIC ACID 500 MG TABLET PO SCH (09:00)
[2017-01-31] MEDS: CEPHALEXIN 500MG CAPSULE PO SCH ×3 (09:00→22:17)
[2017-01-31] MEDS: CELECOXIB 100MG CAPSULE PO SCH ×2 (09:01→18:34)
[2017-01-31] MEDS: SULFAMETHOXAZOLE/TRIMETHOPRIM 800/160MG TABLET PO SCH ×2 (09:01→22:17)
[2017-01-31 20:00] VITALS: BP 119/53
[2017-01-31 20:44] LABS: PLATELET ESTIMATE NORMAL
[2017-01-31 21:08] LABS: CARBON DIOXIDE 29 mEq/L (21-32); CHLORIDE 95 mEq/L (98-107)
[2017-01-31] MEDS: IRON SUCROSE COMPLEX 100 MG in SODIUM CHLORIDE 0.9% 100 ML IV SCH (22:17)
[2017-02-01] MEDS: DILTIAZEM HCL 30MG TABLET PO SCH ×4 (02:58→21:55)
[2017-02-01 06:57] LABS: HEMATOCRIT. 32.1 % (36.0-48.0); HEMOGLOBIN. 10.5 g/dL (12.0-16.0); MEAN CORPUSCULAR HEMOGLOBIN 28.1 pg (28.0-32.0); MEAN CORPUSCULAR VOLUME 85.7 fL (81.0-99.0); MEAN PLATELET VOLUME 8.5 fl (7.4-10.4); PLATELET 245 x1000/uL (130-400); RED BLOOD CELL COUNT 3.75 mill/uL (4.2-5.4); RED CELL DISTRIBUTION WIDTH 18.6 % (11.6-14.6)
[2017-02-01 07:08] LABS: CARBON DIOXIDE 29 mEq/L (21-32); CHLORIDE 98 mEq/L (98-107)
[2017-02-01 08:00] VITALS: BP 107/48
[2017-02-01] MEDS: CEPHALEXIN 500MG CAPSULE PO SCH ×3 (09:24→21:55)
[2017-02-01] MEDS: APIXABAN 2.5 MG TABLET PO SCH ×2 (09:24→17:49)
[2017-02-01] MEDS: CELECOXIB 100MG CAPSULE PO SCH ×2 (09:24→17:49)
[2017-02-01] MEDS: SULFAMETHOXAZOLE/TRIMETHOPRIM 800/160MG TABLET PO SCH ×2 (09:24→21:55)
[2017-02-01] MEDS: ZINC SULFATE 220 MG ( 50 ) CAPSULE PO SCH (09:24)
[2017-02-01] MEDS: ASCORBIC ACID 500 MG TABLET PO SCH (09:24)
[2017-02-01] MEDS: EZETIMIBE 10MG TABLET PO SCH (09:25)
[2017-02-01 13:12] LABS: 25-HYDROXY VITAMIN D3 11 ng/mL (.)
[2017-02-01 17:00] LABS: PLATELET ESTIMATE NORMAL
[2017-02-01] MEDS: ACETAMINOPHEN 325MG TABLET PO PRN (17:49)
[2017-02-01 20:00] VITALS: BP 118/56
[2017-02-01] MEDS: IRON SUCROSE COMPLEX 100 MG in SODIUM CHLORIDE 0.9% 100 ML IV SCH (20:33)
[2017-02-02] MEDS: DILTIAZEM HCL 30MG TABLET PO SCH ×4 (03:00→21:00)
[2017-02-02] MEDS: ACETAMINOPHEN 325MG TABLET PO PRN (04:34)
[2017-02-02 08:00] VITALS: BP 118/63
[2017-02-02] MEDS: APIXABAN 2.5 MG TABLET PO SCH ×2 (09:07→17:23)
[2017-02-02] MEDS: EZETIMIBE 10MG TABLET PO SCH (09:07)
[2017-02-02] MEDS: ASCORBIC ACID 500 MG TABLET PO SCH (09:07)
[2017-02-02] MEDS: SULFAMETHOXAZOLE/TRIMETHOPRIM 800/160MG TABLET PO SCH (09:07)
[2017-02-02] MEDS: ZINC SULFATE 220 MG ( 50 ) CAPSULE PO SCH (09:07)
[2017-02-02] MEDS: CEPHALEXIN 500MG CAPSULE PO SCH ×2 (09:07→14:26)
[2017-02-02] MEDS: CELECOXIB 100MG CAPSULE PO SCH ×2 (09:08→17:22)
[2017-02-02] MEDS: FERROUS SULFATE 325MG TABLET PO SCH ×2 (14:26→17:22)
[2017-02-02] MEDS ORDERED: ERGOCALCIFEROL 50000UNITS CAPSULE PO SCH (16:30)
[2017-02-02 20:00] VITALS: BP 108/58
[2017-02-03] MEDS: DILTIAZEM HCL 30MG TABLET PO SCH ×4 (03:42→21:04)
[2017-02-03 08:00] VITALS: BP 119/69
[2017-02-03] MEDS: FERROUS SULFATE 325MG TABLET PO SCH ×3 (09:03→16:32)
[2017-02-03] MEDS: ZINC SULFATE 220 MG ( 50 ) CAPSULE PO SCH (09:03)
[2017-02-03] MEDS: CELECOXIB 100MG CAPSULE PO SCH ×2 (09:03→16:32)
[2017-02-03] MEDS: EZETIMIBE 10MG TABLET PO SCH (09:03)
[2017-02-03] MEDS: APIXABAN 2.5 MG TABLET PO SCH ×2 (09:04→16:32)
[2017-02-03] MEDS: ASCORBIC ACID 500 MG TABLET PO SCH (09:04)
[2017-02-03 09:43] LABS: HEMATOCRIT. 32.4 % (36.0-48.0); HEMOGLOBIN. 10.6 g/dL (12.0-16.0); MEAN CORPUSCULAR HEMOGLOBIN 28.5 pg (28.0-32.0); MEAN CORPUSCULAR VOLUME 87.1 fL (81.0-99.0); MEAN PLATELET VOLUME 8.3 fl (7.4-10.4); PLATELET 271 x1000/uL (130-400); RED BLOOD CELL COUNT 3.72 mill/uL (4.2-5.4); RED CELL DISTRIBUTION WIDTH 19.1 % (11.6-14.6)
[2017-02-03 10:00] LABS: CARBON DIOXIDE 31 mEq/L (21-32); CHLORIDE 96 mEq/L (98-107)
[2017-02-03 22:11] LABS: PLATELET ESTIMATE NORMAL
[2017-02-04] MEDS: DILTIAZEM HCL 30MG TABLET PO SCH ×4 (03:00→21:15)
[2017-02-04 08:00] VITALS: BP 123/67
[2017-02-04 08:06] LABS: BASOPHILS % 0.9 % (0.0-2.0); EOSINOPHILS % 1.1 % (0.0-5.0); HEMATOCRIT. 31.2 % (36.0-48.0); HEMOGLOBIN. 10.3 g/dL (12.0-16.0); LYMPHOCYTES % 8.3 % (20.0-50.0); MEAN CORPUSCULAR HEMOGLOBIN 28.7 pg (28.0-32.0); MEAN CORPUSCULAR VOLUME 87.1 fL (81.0-99.0); MEAN PLATELET VOLUME 7.9 fl (7.4-10.4); MONOCYTES % 10.4 % (2.0-8.0); NEUTROPHILS % 79.3 % (40.0-76.0); PLATELET 255 x1000/uL (130-400); RED BLOOD CELL COUNT 3.58 mill/uL (4.2-5.4); RED CELL DISTRIBUTION WIDTH 18.8 % (11.6-14.6)
[2017-02-04] MEDS: ASCORBIC ACID 500 MG TABLET PO SCH (08:34)
[2017-02-04] MEDS: APIXABAN 2.5 MG TABLET PO SCH ×2 (08:34→18:01)
[2017-02-04] MEDS: ZINC SULFATE 220 MG ( 50 ) CAPSULE PO SCH (08:34)
[2017-02-04] MEDS: EZETIMIBE 10MG TABLET PO SCH (08:34)
[2017-02-04] MEDS: CELECOXIB 100MG CAPSULE PO SCH ×2 (08:34→18:00)
[2017-02-04] MEDS: FERROUS SULFATE 325MG TABLET PO SCH ×3 (08:34→18:00)
[2017-02-04 08:53] LABS: CARBON DIOXIDE 31 mEq/L (21-32); CHLORIDE 98 mEq/L (98-107)
[2017-02-04 20:00] VITALS: BP 114/57
[2017-02-05] MEDS: DILTIAZEM HCL 30MG TABLET PO SCH ×4 (03:40→20:59)
[2017-02-05 07:33] LABS: CARBON DIOXIDE 29 mEq/L (21-32); CHLORIDE 100 mEq/L (98-107)
[2017-02-05 08:00] VITALS: BP 113/61
[2017-02-05] MEDS: APIXABAN 2.5 MG TABLET PO SCH ×2 (10:05→17:09)
[2017-02-05] MEDS: ASCORBIC ACID 500 MG TABLET PO SCH (10:05)
[2017-02-05] MEDS: FERROUS SULFATE 325MG TABLET PO SCH ×3 (10:05→17:08)
[2017-02-05] MEDS: EZETIMIBE 10MG TABLET PO SCH (10:05)
[2017-02-05] MEDS: ZINC SULFATE 220 MG ( 50 ) CAPSULE PO SCH (10:05)
[2017-02-05] MEDS: CELECOXIB 100MG CAPSULE PO SCH ×2 (10:05→17:08)
[2017-02-05] MEDS ORDERED: LIDOCAINE HCL/EPINEPHRINE 1%-EPI 1:100,000 30 ML VIAL INFIL SCH (10:45)
[2017-02-05] MEDS ORDERED: LIDOCAINE HCL 1% 20ML VIAL (Pyxis) INJ INFIL ONE (11:00)
[2017-02-05] MEDS ORDERED: LIDOCAINE HCL 1% 20ML VIAL (Pyxis) INJ INJ SCH (11:00)
[2017-02-05] MEDS: ACETAMINOPHEN 325MG TABLET PO PRN ×2 (17:08→21:00)
[2017-02-05 19:00] VITALS: BP 92/50
[2017-02-06] MEDS: DILTIAZEM HCL 30MG TABLET PO SCH ×4 (03:00→21:00)
[2017-02-06 08:00] VITALS: BP_SYST 109; BP_SYST 150; BP_DIAS 51; BP_DIAS 65
[2017-02-06] MEDS: ZINC SULFATE 220 MG ( 50 ) CAPSULE PO SCH (09:03)
[2017-02-06] MEDS: ASCORBIC ACID 500 MG TABLET PO SCH (09:03)
[2017-02-06] MEDS: APIXABAN 2.5 MG TABLET PO SCH ×2 (09:03→17:25)
[2017-02-06] MEDS: CELECOXIB 100MG CAPSULE PO SCH ×2 (09:04→17:25)
[2017-02-06] MEDS: EZETIMIBE 10MG TABLET PO SCH (09:04)
[2017-02-06] MEDS: FERROUS SULFATE 325MG TABLET PO SCH ×3 (09:04→17:25)
[2017-02-06 20:00] VITALS: BP 112/63
[2017-02-07] MEDS: ACETAMINOPHEN 325MG TABLET PO PRN ×2 (01:42→20:11)
[2017-02-07] MEDS: DILTIAZEM HCL 30MG TABLET PO SCH ×4 (03:00→20:11)
[2017-02-07 08:00] VITALS: BP 122/65
[2017-02-07] MEDS: FERROUS SULFATE 325MG TABLET PO SCH ×3 (10:30→16:04)
[2017-02-07] MEDS: EZETIMIBE 10MG TABLET PO SCH (10:30)
[2017-02-07] MEDS: ASCORBIC ACID 500 MG TABLET PO SCH (10:30)
[2017-02-07] MEDS: CELECOXIB 100MG CAPSULE PO SCH ×2 (10:30→16:04)
[2017-02-07] MEDS: ZINC SULFATE 220 MG ( 50 ) CAPSULE PO SCH (10:30)
[2017-02-07] MEDS: APIXABAN 2.5 MG TABLET PO SCH ×2 (10:37→16:04)
[2017-02-07 20:00] VITALS: BP 109/56
[2017-02-08] MEDS: DILTIAZEM HCL 30MG TABLET PO SCH ×2 (03:14→09:02)
[2017-02-08 06:38] LABS: BASOPHILS % 0.9 % (0.0-2.0); HEMATOCRIT. 30.2 % (36.0-48.0); HEMOGLOBIN. 9.8 g/dL (12.0-16.0); LYMPHOCYTES % 8.2 % (20.0-50.0); MEAN CORPUSCULAR HEMOGLOBIN 28.9 pg (28.0-32.0); MEAN CORPUSCULAR VOLUME 88.6 fL (81.0-99.0); MEAN PLATELET VOLUME 7.9 fl (7.4-10.4); MONOCYTES % 12.9 % (2.0-8.0); PLATELET 225 x1000/uL (130-400); RED BLOOD CELL COUNT 3.41 mill/uL (4.2-5.4); RED CELL DISTRIBUTION WIDTH 20.6 % (11.6-14.6)
[2017-02-08 06:39] LABS: CLARITY URINE CLOUDY (CLEAR); COLOR URINE YELLOW (YELLOW); GLUCOSE URINE NEGATIVE (NEGATIVE); KETONES URINE NEGATIVE (NEGATIVE); LEUKOCYTE ESTERASE URINE 1+ (NEGATIVE); NITRITE URINE NEGATIVE (NEGATIVE); OCCULT BLOOD URINE 2+ (NEGATIVE); PH URINE 5.5 (4.5-8.0); PROTEIN URINE NEGATIVE (NEGATIVE); UROBILINOGEN URINE 0.2 E.U./dL (0.2-1.0)
[2017-02-08 08:00] LABS: CARBON DIOXIDE 31 mEq/L (21-32); CHLORIDE 98 mEq/L (98-107); PHOSPHORUS 2.9 mg/dL (2.5-4.9)
[2017-02-08] MEDS: APIXABAN 2.5 MG TABLET PO SCH (09:00)
[2017-02-08] MEDS: EZETIMIBE 10MG TABLET PO SCH (09:00)
[2017-02-08] MEDS: FERROUS SULFATE 325MG TABLET PO SCH ×2 (09:01→12:41)
[2017-02-08] MEDS: ASCORBIC ACID 500 MG TABLET PO SCH (09:01)
[2017-02-08] MEDS: ZINC SULFATE 220 MG ( 50 ) CAPSULE PO SCH (09:01)
[2017-02-08] MEDS: CELECOXIB 100MG CAPSULE PO SCH (09:01)
[2017-02-08 13:08] VITALS: BP 126/69
== END 2017-02-08 13:47 | disposition home health service (06) | DRG 570 ==
PROVIDERS: ADMIT Physical Medicine & Rehabilitation Spinal Cord Injury Medicine; ATTEND Internal Medicine
PROC: 0HBKXZZ Excision of Right Lower Leg Skin, External Approach (ICD-10-PCS; principal; 2017-02-05)
DX: L03.115 Cellulitis of right lower limb (principal); G93.40 Encephalopathy, unspecified; E46 Unspecified protein-calorie malnutrition; K92.2 Gastrointestinal hemorrhage, unspecified; L97.219 Non-pressure chronic ulcer of right calf with unspecified severity; E87.5 Hyperkalemia; I48.2 Chronic atrial fibrillation; I11.9 Hypertensive heart disease without heart failure; E55.9 Vitamin D deficiency, unspecified; D64.9 Anemia, unspecified; G31.84 Mild cognitive impairment of uncertain or unknown etiology; I87.2 Venous insufficiency (chronic) (peripheral); J45.909 Unspecified asthma, uncomplicated; M75.01 Adhesive capsulitis of right shoulder; M75.02 Adhesive capsulitis of left shoulder; R26.9 Unspecified abnormalities of gait and mobility; Z85.3 Personal history of malignant neoplasm of breast; Z92.21 Personal history of antineoplastic chemotherapy; Z92.3 Personal history of irradiation; Z86.73 Personal history of transient ischemic attack (TIA), and cerebral infarction without residual deficits; Z68.21 Body mass index [BMI] 21.0-21.9, adult; Z82.49 Family history of ischemic heart disease and other diseases of the circulatory system
CPT/HCPCS: 36415; 80048; 80053; 80061; 81001; 82270; 82306; 82607; 82728; 82746; 83036; 83540; 83550; 83735; 84100; 84134; 84443; 84630; 85025; 85651; 87086; 92523; 93970; 97110; 97116; 97163; 97167; 97530; 97532; 97535; A6261; C1893; J3370; J3420; J3490; J7050

== ENCOUNTER 2017-03-10 19:27 | Inpatient (IN) | payer MEDICARE, BC ==
[~2017-03-10] VITALS: Ht 162.6 cm; Wt 44.0 kg
[~2017-03-10 19:27] MED LIST changes: -CELE200C PO; -DILT30TA3 PO; -FURO-152 PO; -OMEP40CA34 PO; -POTA-9 PO
[2017-03-10] MEDS ORDERED: SODIUM CHLORIDE 0.9% 1000ML BAG (SEPSIS BOLUS) IV ONE (19:45)
[2017-03-10] MEDS ORDERED: PIPERACILLIN/TAZ 3.375G PREMIX 50 ML IV ONE (19:45)
[2017-03-10] MEDS ORDERED: VANCOMYCIN 1 G PREMIX 200 ML IV ONE (19:45)
[2017-03-10 20:37] LABS: HEMATOCRIT. 40.3 % (36.0-48.0); MEAN CORPUSCULAR HEMOGLOBIN 31.8 pg (28.0-32.0); MEAN CORPUSCULAR VOLUME 98.1 fL (81.0-99.0); PLATELET 206 x1000/uL (130-400); RED BLOOD CELL COUNT 4.11 mill/uL (4.2-5.4)
[2017-03-10 20:41] LABS: INR 2.7; PARTIAL THROMBOPLASTIN TIME 41.3 sec (23.4-31.0)
[2017-03-10] MEDS ORDERED: ASPIRIN 81MG EC TABLET PO ONE (21:00)
[2017-03-10 21:26] LABS: NUCLEATED RED BLOOD CELLS 2 /100 WBC; PLATELET ESTIMATE NORMAL
[2017-03-10 21:49] LABS: TROPONIN I 0.02 ng/mL (0.00-0.04)
[2017-03-11] VITALS (71 sets, daily range): BP systolic 75–130; BP diastolic 34–87
[2017-03-11 05:40] LABS: BG BASE EXCESS -8.3 mmol/L (-2.0-2.0); BG CARBOXYHEMOGLOBIN 1.4 % (0.5-1.5); BG DEOXYHEMOGLOBIN 20.2 % (0.0-5.0); BG FRACTION INSPIRED OXYGEN 28; BG HCO3 ACT 21.2 mmol/L (22.0-26.0); BG METHEMOGLOBIN 0.4 % (0.0-1.5); BG OXYGEN SATURATION 79.4 % (92.0-98.5); BG PCO2 61.2 mmHg (35.0-45.0); BG PH 7.157 (7.350-7.450); BG PO2 52.4 mmHg (75.0-100.0); BG SAMPLE SITE RIGHT RADIAL; BG TOTAL HEMOGLOBIN 13.8 g/dL (12.0-18.0); BG VENT MODE NASAL CANNULA
[2017-03-11] MEDS ORDERED: ONDANSETRON HCL 4MG/2ML VIAL IV PRN ×2 (08:00→10:15)
[2017-03-11] MEDS ORDERED: ZOSYN XX SCH (08:00)
[2017-03-11] MEDS ORDERED: ENOXAPARIN 40MG/0.4ML SYR SUBCUT SCH (08:00)
[2017-03-11] MEDS ORDERED: FUROSEMIDE 40MG/4ML VIAL IVP NR (08:00)
[2017-03-11] MEDS ORDERED: NOREPINEPHRINE 16 MG in DEXT 5% WATER 234 ML IV PRN (08:00)
[2017-03-11] MEDS ORDERED: CEFEPIME 2,000 MG in DEXT 5% WATER 100 ML IV SCH (08:15)
[2017-03-11 08:33] LABS: BG BASE EXCESS -2.9 mmol/L (-2.0-2.0); BG CARBOXYHEMOGLOBIN 1.3 % (0.5-1.5); BG DEOXYHEMOGLOBIN 0.2 % (0.0-5.0); BG FRACTION INSPIRED OXYGEN 100; BG HCO3 ACT 24.9 mmol/L (22.0-26.0); BG METHEMOGLOBIN 0.4 % (0.0-1.5); BG OXYGEN SATURATION 99.8 % (92.0-98.5); BG OXYHEMOGLOBIN 98.1 % (94.0-97.0); BG PCO2 56.6 mmHg (35.0-45.0); BG PH 7.261 (7.350-7.450); BG PO2 307.2 mmHg (75.0-100.0); BG SAMPLE SITE RIGHT BRACHIAL; BG TIDAL VOLUME(mL) 500 mL; BG TOTAL HEMOGLOBIN 13.1 g/dL (12.0-18.0); BG VENT MODE VENT - A/C; BG VENT RATE 12 set
[2017-03-11 09:45] LABS: HEMATOCRIT. 36.7 % (36.0-48.0); HEMOGLOBIN. 11.8 g/dL (12.0-16.0); MEAN CORPUSCULAR HEMOGLOBIN 31.1 pg (28.0-32.0); MEAN PLATELET VOLUME 8.8 fl (7.4-10.4); PLATELET 170 x1000/uL (130-400); RED BLOOD CELL COUNT 3.79 mill/uL (4.2-5.4); RED CELL DISTRIBUTION WIDTH 21.7 % (11.6-14.6)
[2017-03-11 09:58] LABS: PHOSPHORUS 4.3 mg/dL (2.5-4.9)
[2017-03-11 10:09] LABS: NUCLEATED RED BLOOD CELLS 3 /100 WBC
[2017-03-11 10:10] LABS: PLATELET ESTIMATE NORMAL
[2017-03-11] MEDS ORDERED: MAGNESIUM/ALUMINUM HYDROXIDE/SIMETHICONE 30ML UDC PO PRN (10:15)
[2017-03-11] MEDS ORDERED: VANCOMYCIN 1 G PREMIX 200 ML IV SCH (10:15)
[2017-03-11] MEDS ORDERED: GUAIFENESIN 200MG/10ML SUGAR FREE UDC PO PRN (10:15)
[2017-03-11] MEDS ORDERED: ACETAMINOPHEN 325MG TABLET PO PRN (10:15)
[2017-03-11] MEDS ORDERED: PIPERACILLIN/TAZ 3.375G PREMIX 50 ML IV SCH (10:15)
[2017-03-11] MEDS ORDERED: IPRATROPIUM/ALBUTEROL 0.5-3(2.5)MG/3ML NEB INH SCH (10:15)
[2017-03-11] MEDS: FUROSEMIDE 40MG/4ML VIAL IV SCH ×2 (10:16→17:27)
[2017-03-11] MEDS: PIPERACILLIN/TAZ 3.375G PREMIX 50 ML IV SCH ×2 (10:16→17:27)
[2017-03-11] MEDS: PANTOPRAZOLE SODIUM 40 MG/VIAL IV SCH (10:16)
[2017-03-11] MEDS ORDERED: SODIUM BICARBONATE 7.5% 0.9 MEQ/ML 50ML SYR IV ONE ×2 (10:40)
[2017-03-11] MEDS ORDERED: EPINEPHRINE 0.1MG/ML (1:10,000) 10ML SYR ONE ×2 (10:40)
[2017-03-11] MEDS ORDERED: CALCIUM CHLORIDE 1GM/10ML SYR IV ONE (10:40)
[2017-03-11] MEDS ORDERED: SUCCINYLCHOLINE CHLORIDE 200MG/10ML VIAL IV ONE (10:40)
[2017-03-11] MEDS ORDERED: ATROPINE SULFATE 1MG/10ML SYR ONE (10:40)
[2017-03-11] MEDS: MORPHINE SULFATE 4 MG/ML CPJ (NOT FOR IM USE) IV PRN ×3 (11:08→23:26)
[2017-03-11 12:57] LABS: BG BASE EXCESS 2.8 mmol/L (-2.0-2.0); BG CARBOXYHEMOGLOBIN 0.9 % (0.5-1.5); BG DEOXYHEMOGLOBIN 1.4 % (0.0-5.0); BG FRACTION INSPIRED OXYGEN 50; BG METHEMOGLOBIN 0.2 % (0.0-1.5); BG OXYGEN SATURATION 98.6 % (92.0-98.5); BG OXYHEMOGLOBIN 97.5 % (94.0-97.0); BG PCO2 30.7 mmHg (35.0-45.0); BG PH 7.528 (7.350-7.450); BG PO2 113.5 mmHg (75.0-100.0); BG SAMPLE SITE RIGHT RADIAL; BG TIDAL VOLUME(mL) 500 mL; BG TOTAL HEMOGLOBIN 12.4 g/dL (12.0-18.0); BG VENT MODE VENT - A/C; BG VENT RATE 16 set
[2017-03-11] MEDS: IPRATROPIUM/ALBUTEROL 0.5-3(2.5)MG/3ML NEB INH PRN (15:53)
[2017-03-11 16:26] LABS: TROPONIN I 0.06 ng/mL (0.00-0.04)
[2017-03-11] MEDS: VANCOMYCIN 750 MG PREMIX 150 ML IV SCH (18:35)
[2017-03-11 23:45] LABS: TROPONIN I 0.06 ng/mL (0.00-0.04)
[2017-03-12] VITALS (78 sets, daily range): BP systolic 90–122; BP diastolic 45–72
[2017-03-12] MEDS: PIPERACILLIN/TAZ 3.375G PREMIX 50 ML IV SCH ×3 (01:08→17:07)
[2017-03-12 05:57] LABS: HEMATOCRIT. 36.8 % (36.0-48.0); HEMOGLOBIN. 12.2 g/dL (12.0-16.0); MEAN CORPUSCULAR HEMOGLOBIN 31.1 pg (28.0-32.0); MEAN CORPUSCULAR VOLUME 93.9 fL (81.0-99.0); PLATELET 148 x1000/uL (130-400); RED BLOOD CELL COUNT 3.92 mill/uL (4.2-5.4); RED CELL DISTRIBUTION WIDTH 21.5 % (11.6-14.6)
[2017-03-12 06:17] LABS: INR 1.9; PROTHROMBIN TIME 19.4 sec (9.4-11.6)
[2017-03-12 06:39] LABS: CHLORIDE 104 mEq/L (98-107)
[2017-03-12 06:59] LABS: HEPATITIS B SURFACE ANTIGEN NEGATIVE
[2017-03-12 07:11] LABS: CARBON DIOXIDE 25 mEq/L (21-32)
[2017-03-12 07:26] LABS: HEPATITIS B CORE AB IGM NEGATIVE
[2017-03-12 07:28] LABS: HEPATITIS A AB IGM NEGATIVE (NEGATIVE)
[2017-03-12] MEDS: IPRATROPIUM/ALBUTEROL 0.5-3(2.5)MG/3ML NEB INH PRN ×2 (08:21→20:20)
[2017-03-12 08:35] LABS: GLUCOSE URINE NEGATIVE (NEGATIVE); KETONES URINE NEGATIVE (NEGATIVE); LEUKOCYTE ESTERASE URINE NEGATIVE (NEGATIVE); NITRITE URINE NEGATIVE (NEGATIVE); OCCULT BLOOD URINE TRACE (NEGATIVE); PROTEIN URINE NEGATIVE (NEGATIVE); SPECIFIC GRAVITY URINE 1.008 (1.005-1.030); UROBILINOGEN URINE 0.2 E.U./dL (0.2-1.0)
[2017-03-12 08:36] LABS: CLARITY URINE CLEAR (CLEAR); COLOR URINE YELLOW (YELLOW)
[2017-03-12] MEDS: PANTOPRAZOLE SODIUM 40 MG/VIAL IV SCH (08:59)
[2017-03-12] MEDS: FUROSEMIDE 40MG/4ML VIAL IV SCH ×2 (08:59→17:07)
[2017-03-12 09:11] LABS: NUCLEATED RED BLOOD CELLS 5 /100 WBC
[2017-03-12 09:12] LABS: PLATELET ESTIMATE NORMAL
[2017-03-12 10:23] LABS: BG BASE EXCESS 7.7 mmol/L (-2.0-2.0); BG CARBOXYHEMOGLOBIN 0.9 % (0.5-1.5); BG DEOXYHEMOGLOBIN 1.1 % (0.0-5.0); BG FRACTION INSPIRED OXYGEN 40; BG HCO3 ACT 27.7 mmol/L (22.0-26.0); BG METHEMOGLOBIN 0.3 % (0.0-1.5); BG OXYGEN SATURATION 98.9 % (92.0-98.5); BG OXYHEMOGLOBIN 97.7 % (94.0-97.0); BG PCO2 25.9 mmHg (35.0-45.0); BG PH 7.647 (7.350-7.450); BG PO2 125.3 mmHg (75.0-100.0); BG SAMPLE SITE RIGHT RADIAL; BG TIDAL VOLUME(mL) 500 mL; BG TOTAL HEMOGLOBIN 12.8 g/dL (12.0-18.0); BG VENT MODE VENT - A/C; BG VENT RATE 16 set
[2017-03-12] MEDS: MORPHINE SULFATE 4 MG/ML CPJ (NOT FOR IM USE) IV PRN ×2 (12:58→17:07)
[2017-03-12 15:43] LABS: BG BASE EXCESS 8.3 mmol/L (-2.0-2.0); BG CARBOXYHEMOGLOBIN 0.8 % (0.5-1.5); BG DEOXYHEMOGLOBIN 0.9 % (0.0-5.0); BG FRACTION INSPIRED OXYGEN 40; BG HCO3 ACT 30.4 mmol/L (22.0-26.0); BG METHEMOGLOBIN 0.3 % (0.0-1.5); BG OXYGEN SATURATION 99.1 % (92.0-98.5); BG PCO2 33.6 mmHg (35.0-45.0); BG PH 7.574 (7.350-7.450); BG PO2 144.8 mmHg (75.0-100.0); BG PRESSURE SUPPORT 10; BG SAMPLE SITE RIGHT RADIAL; BG TIDAL VOLUME(mL) 500 mL; BG TOTAL HEMOGLOBIN 12.7 g/dL (12.0-18.0); BG VENT MODE VENT - SIMV; BG VENT RATE 12 set
[2017-03-12] MEDS: VANCOMYCIN 750 MG PREMIX 150 ML IV SCH (18:27)
[2017-03-13] VITALS (86 sets, daily range): BP systolic 82–129; BP diastolic 34–73
[2017-03-13] MEDS: PIPERACILLIN/TAZ 3.375G PREMIX 50 ML IV SCH ×3 (02:21→17:42)
[2017-03-13] MEDS: MORPHINE SULFATE 4 MG/ML CPJ (NOT FOR IM USE) IV PRN ×2 (05:39→14:31)
[2017-03-13 06:06] LABS: HEMOGLOBIN. 12.4 g/dL (12.0-16.0); MEAN CORPUSCULAR HEMOGLOBIN 31.2 pg (28.0-32.0); MEAN CORPUSCULAR VOLUME 93.5 fL (81.0-99.0); RED BLOOD CELL COUNT 3.96 mill/uL (4.2-5.4); RED CELL DISTRIBUTION WIDTH 21.6 % (11.6-14.6)
[2017-03-13] MEDS: FUROSEMIDE 40MG/4ML VIAL IV SCH (06:24)
[2017-03-13 07:47] LABS: BG BASE EXCESS 7.5 mmol/L (-2.0-2.0); BG CARBOXYHEMOGLOBIN 1.1 % (0.5-1.5); BG DEOXYHEMOGLOBIN 1.1 % (0.0-5.0); BG FRACTION INSPIRED OXYGEN 40; BG HCO3 ACT 34.4 mmol/L (22.0-26.0); BG METHEMOGLOBIN 0.4 % (0.0-1.5); BG OXYGEN SATURATION 98.9 % (92.0-98.5); BG OXYHEMOGLOBIN 97.4 % (94.0-97.0); BG PCO2 59.4 mmHg (35.0-45.0); BG PH 7.381 (7.350-7.450); BG PO2 142.9 mmHg (75.0-100.0); BG PRESSURE SUPPORT 10; BG SAMPLE SITE RIGHT BRACHIAL; BG TIDAL VOLUME(mL) 500 mL; BG TOTAL HEMOGLOBIN 12.7 g/dL (12.0-18.0); BG VENT MODE VENT - SIMV; BG VENT RATE 4 set
[2017-03-13] MEDS: IPRATROPIUM/ALBUTEROL 0.5-3(2.5)MG/3ML NEB INH PRN ×2 (07:58→20:09)
[2017-03-13 08:00] LABS: PHOSPHORUS 3.1 mg/dL (2.5-4.9); TROPONIN I 0.04 ng/mL (0.00-0.04)
[2017-03-13] MEDS: PANTOPRAZOLE SODIUM 40 MG/VIAL IV SCH (08:42)
[2017-03-13] MEDS: SODIUM HYPOCHLORITE (0.25%) 480ML SOLUTION (HALF STRENGTH) TOP SCH (08:43)
[2017-03-13 11:00] LABS: PLATELET ESTIMATE SLIGHTLY DECREASED
[2017-03-13 11:04] LABS: PLATELET 123 x1000/uL (130-400)
[2017-03-13] MEDS ORDERED: VANCOMYCIN 1 G PREMIX 200 ML IV SCH (12:00)
[2017-03-13] MEDS: MAGNESIUM OXIDE 400MG TABLET NG SCH (12:34)
[2017-03-13] MEDS ORDERED: KCL 20MEQ/100ML PREMIX 100 ML IV NR ×2 (14:00→21:00)
[2017-03-13 16:13] LABS: BG CARBOXYHEMOGLOBIN 0.9 % (0.5-1.5); BG DEOXYHEMOGLOBIN 0.9 % (0.0-5.0); BG FRACTION INSPIRED OXYGEN 40; BG HCO3 ACT 36.1 mmol/L (22.0-26.0); BG METHEMOGLOBIN 0.2 % (0.0-1.5); BG OXYGEN SATURATION 99.1 % (92.0-98.5); BG PCO2 31.9 mmHg (35.0-45.0); BG PH 7.671 (7.350-7.450); BG PO2 148.1 mmHg (75.0-100.0); BG SAMPLE SITE LEFT BRACHIAL; BG TIDAL VOLUME(mL) 500 mL; BG TOTAL HEMOGLOBIN 12.2 g/dL (12.0-18.0); BG VENT MODE VENT - A/C; BG VENT RATE 12 set
[2017-03-13 18:43] LABS: BG BASE EXCESS 16.7 mmol/L (-2.0-2.0); BG CARBOXYHEMOGLOBIN 0.8 % (0.5-1.5); BG DEOXYHEMOGLOBIN 0.8 % (0.0-5.0); BG FRACTION INSPIRED OXYGEN 40; BG METHEMOGLOBIN 0.2 % (0.0-1.5); BG OXYGEN SATURATION 99.2 % (92.0-98.5); BG OXYHEMOGLOBIN 98.2 % (94.0-97.0); BG PCO2 37.4 mmHg (35.0-45.0); BG PH 7.636 (7.350-7.450); BG PO2 145.6 mmHg (75.0-100.0); BG SAMPLE SITE LEFT BRACHIAL; BG TIDAL VOLUME(mL) 500 mL; BG TOTAL HEMOGLOBIN 12.2 g/dL (12.0-18.0); BG VENT MODE VENT - SIMV; BG VENT RATE 10 set
[2017-03-13] MEDS ORDERED: ALBUMIN HUMAN 25GM/100ML (25%) IV NR (19:00)
[2017-03-13] MEDS: NOREPINEPHRINE 16 MG in DEXT 5% WATER 234 ML IV PRN (21:00)
[2017-03-13] MEDS: LORAZEPAM 2MG/ML CPJ IV PRN (21:52)
[2017-03-14] VITALS (90 sets, daily range): BP systolic 85–127; BP diastolic 17–86
[2017-03-14] MEDS: IPRATROPIUM/ALBUTEROL 0.5-3(2.5)MG/3ML NEB INH PRN ×6 (00:18→20:10)
[2017-03-14] MEDS: PIPERACILLIN/TAZ 3.375G PREMIX 50 ML IV SCH ×3 (02:41→17:36)
[2017-03-14] MEDS: LORAZEPAM 2MG/ML CPJ IV PRN ×2 (04:56→20:35)
[2017-03-14 05:30] LABS: HEMOGLOBIN. 11.5 g/dL (12.0-16.0); MEAN CORPUSCULAR HEMOGLOBIN 31.3 pg (28.0-32.0); MEAN CORPUSCULAR VOLUME 92.7 fL (81.0-99.0); MEAN PLATELET VOLUME 9.4 fl (7.4-10.4); PLATELET 121 x1000/uL (130-400); RED BLOOD CELL COUNT 3.67 mill/uL (4.2-5.4); RED CELL DISTRIBUTION WIDTH 21.4 % (11.6-14.6)
[2017-03-14 05:59] LABS: CARBON DIOXIDE 39 mEq/L (21-32); CHLORIDE 95 mEq/L (98-107)
[2017-03-14 07:18] LABS: PLATELET ESTIMATE SLIGHTLY DECREASED
[2017-03-14] MEDS: MORPHINE SULFATE 4 MG/ML CPJ (NOT FOR IM USE) IV PRN (07:52)
[2017-03-14] MEDS ORDERED: POTASSIUM CHLORIDE INJ 60 MEQ in DEXT 5% WATER 500 ML IV NR (08:00)
[2017-03-14] MEDS: SODIUM HYPOCHLORITE (0.25%) 480ML SOLUTION (HALF STRENGTH) TOP SCH (08:02)
[2017-03-14] MEDS: MAGNESIUM OXIDE 400MG TABLET NG SCH (08:02)
[2017-03-14] MEDS: PANTOPRAZOLE SODIUM 40 MG/VIAL IV SCH (08:02)
[2017-03-14 08:25] LABS: BG BASE EXCESS 16.9 mmol/L (-2.0-2.0); BG CARBOXYHEMOGLOBIN 0.5 % (0.5-1.5); BG FRACTION INSPIRED OXYGEN 35; BG HCO3 ACT 40.8 mmol/L (22.0-26.0); BG OXYHEMOGLOBIN 98.5 % (94.0-97.0); BG PH 7.575 (7.350-7.450); BG PO2 139.9 mmHg (75.0-100.0); BG PRESSURE SUPPORT 10; BG SAMPLE SITE RIGHT BRACHIAL; BG TIDAL VOLUME(mL) 500 mL; BG TOTAL HEMOGLOBIN 11.5 g/dL (12.0-18.0); BG VENT MODE VENT - SIMV; BG VENT RATE 10 set
[2017-03-14 08:59] LABS: PHOSPHORUS 1.2 mg/dL (2.5-4.9)
[2017-03-14] MEDS ORDERED: FUROSEMIDE 40MG/4ML VIAL IV SCH (09:00)
[2017-03-14] MEDS ORDERED: SODIUM PHOS,M-BASIC-D-BASIC 15 MM in DEXT 5% WATER 245 ML IV SCH (11:00)
[2017-03-14] MEDS ORDERED: MAGNESIUM 2 G PREMIX 50 ML IV NR (12:00)
[2017-03-14] MEDS: ACETAMINOPHEN 325MG TABLET PO SCH ×2 (17:36→23:51)
[2017-03-14] MEDS: TRAMADOL 50MG TABLET PO PRN (17:37)
[2017-03-15] VITALS (92 sets, daily range): BP systolic 85–129; BP diastolic 46–87
[2017-03-15] MEDS: PIPERACILLIN/TAZ 3.375G PREMIX 50 ML IV SCH (03:17)
[2017-03-15] MEDS: IPRATROPIUM/ALBUTEROL 0.5-3(2.5)MG/3ML NEB INH PRN ×5 (04:49→23:41)
[2017-03-15] MEDS: TRAMADOL 50MG TABLET PO PRN (05:44)
[2017-03-15] MEDS: ACETAMINOPHEN 325MG TABLET PO SCH (05:45)
[2017-03-15 06:09] LABS: HEMATOCRIT. 33.8 % (36.0-48.0); HEMOGLOBIN. 11.3 g/dL (12.0-16.0); MEAN CORPUSCULAR VOLUME 92.9 fL (81.0-99.0); PLATELET 63 x1000/uL (130-400); RED BLOOD CELL COUNT 3.63 mill/uL (4.2-5.4); RED CELL DISTRIBUTION WIDTH 21.1 % (11.6-14.6)
[2017-03-15 06:45] LABS: BG BASE EXCESS 7.6 mmol/L (-2.0-2.0); BG CARBOXYHEMOGLOBIN 1.3 % (0.5-1.5); BG DEOXYHEMOGLOBIN 1.9 % (0.0-5.0); BG FRACTION INSPIRED OXYGEN 30; BG METHEMOGLOBIN 0.5 % (0.0-1.5); BG OXYGEN SATURATION 98.1 % (92.0-98.5); BG OXYHEMOGLOBIN 96.3 % (94.0-97.0); BG PCO2 43.9 mmHg (35.0-45.0); BG PO2 105.2 mmHg (75.0-100.0); BG PRESSURE SUPPORT 10; BG SAMPLE SITE RIGHT BRACHIAL; BG TIDAL VOLUME(mL) 500 mL; BG TOTAL HEMOGLOBIN 12.4 g/dL (12.0-18.0); BG VENT MODE VENT - SIMV; BG VENT RATE 10 set
[2017-03-15 06:46] LABS: CHLORIDE 96 mEq/L (98-107)
[2017-03-15 07:21] LABS: CARBON DIOXIDE 29 mEq/L (21-32); PHOSPHORUS 1.8 mg/dL (2.5-4.9)
[2017-03-15 08:21] LABS: PLATELET ESTIMATE DECREASED
[2017-03-15] MEDS ORDERED: LACTULOSE 20G/30ML UDC PO NR (08:30)
[2017-03-15] MEDS: PANTOPRAZOLE SODIUM 40 MG/VIAL IV SCH (09:48)
[2017-03-15] MEDS: APIXABAN 2.5 MG TABLET PO SCH ×2 (09:49→21:06)
[2017-03-15] MEDS: MAGNESIUM OXIDE 400MG TABLET NG SCH (09:49)
[2017-03-15] MEDS: SODIUM HYPOCHLORITE (0.25%) 480ML SOLUTION (HALF STRENGTH) TOP SCH (09:49)
[2017-03-15] MEDS: MORPHINE SULFATE 4 MG/ML CPJ (NOT FOR IM USE) IV PRN ×3 (09:50→19:37)
[2017-03-15] MEDS ORDERED: POTASSIUM PHOS,M-BASIC-D-BASIC 20 MMOL in DEXT 5% WATER 243.3333 ML IV NR (10:30)
[2017-03-15] MEDS: POTASSIUM CHLORIDE 20MEQ/PACKET NG SCH (11:14)
[2017-03-15] MEDS: FUROSEMIDE 40MG/4ML VIAL IVP SCH (11:14)
[2017-03-15] MEDS ORDERED: TRAMADOL 50MG TABLET PO SCH (14:00)
[2017-03-16] VITALS (90 sets, daily range): BP systolic 33–147; BP diastolic 16–82
[2017-03-16] MEDS: MORPHINE SULFATE 4 MG/ML CPJ (NOT FOR IM USE) IV PRN ×4 (03:08→21:22)
[2017-03-16] MEDS: IPRATROPIUM/ALBUTEROL 0.5-3(2.5)MG/3ML NEB INH PRN ×5 (03:54→20:13)
[2017-03-16 05:35] LABS: HEMATOCRIT. 33.8 % (36.0-48.0); MEAN CORPUSCULAR HEMOGLOBIN 30.8 pg (28.0-32.0); MEAN CORPUSCULAR VOLUME 94.8 fL (81.0-99.0); MEAN PLATELET VOLUME 9.4 fl (7.4-10.4); PLATELET 94 x1000/uL (130-400); RED BLOOD CELL COUNT 3.57 mill/uL (4.2-5.4); RED CELL DISTRIBUTION WIDTH 20.9 % (11.6-14.6)
[2017-03-16] MEDS ORDERED: BISACODYL 10MG SUPP PR NR (05:45)
[2017-03-16 05:55] LABS: CARBON DIOXIDE 35 mEq/L (21-32); CHLORIDE 95 mEq/L (98-107)
[2017-03-16 07:39] LABS: BG BASE EXCESS 10.4 mmol/L (-2.0-2.0); BG CARBOXYHEMOGLOBIN 1.3 % (0.5-1.5); BG DEOXYHEMOGLOBIN 1.7 % (0.0-5.0); BG FRACTION INSPIRED OXYGEN 30; BG HCO3 ACT 35.9 mmol/L (22.0-26.0); BG METHEMOGLOBIN 0.2 % (0.0-1.5); BG OXYGEN SATURATION 98.3 % (92.0-98.5); BG OXYHEMOGLOBIN 96.8 % (94.0-97.0); BG PCO2 50.8 mmHg (35.0-45.0); BG PH 7.467 (7.350-7.450); BG PO2 106.2 mmHg (75.0-100.0); BG SAMPLE SITE RIGHT BRACHIAL; BG TIDAL VOLUME(mL) 50 mL; BG TOTAL HEMOGLOBIN 14.3 g/dL (12.0-18.0); BG VENT MODE 10; BG VENT RATE 10 set
[2017-03-16] MEDS: PANTOPRAZOLE SODIUM 40 MG/VIAL IV SCH (08:34)
[2017-03-16] MEDS: APIXABAN 2.5 MG TABLET PO SCH ×2 (08:34→21:01)
[2017-03-16] MEDS: MAGNESIUM OXIDE 400MG TABLET NG SCH (08:34)
[2017-03-16] MEDS: POTASSIUM CHLORIDE 20MEQ/PACKET NG SCH (08:34)
[2017-03-16] MEDS: FUROSEMIDE 40MG/4ML VIAL IVP SCH (08:34)
[2017-03-16] MEDS: SODIUM HYPOCHLORITE (0.25%) 480ML SOLUTION (HALF STRENGTH) TOP SCH (08:35)
[2017-03-16] MEDS ORDERED: POTASSIUM PHOS,M-BASIC-D-BASIC 20 MMOL in DEXT 5% WATER 243.3333 ML IV NR (09:00)
[2017-03-16 09:13] LABS: PLATELET ESTIMATE DECREASED
[2017-03-16] MEDS: DIPHENHYDRAMINE 50MG/ML VIAL IV PRN (19:13)
[2017-03-16 21:17] LABS: CHLORIDE 94 mEq/L (98-107)
[2017-03-16 21:21] LABS: CARBON DIOXIDE 35 mEq/L (21-32)
[2017-03-16 21:23] LABS: PHOSPHORUS 2.2 mg/dL (2.5-4.9)
[2017-03-17] VITALS (81 sets, daily range): BP systolic 89–140; BP diastolic 47–106
[2017-03-17] MEDS: IPRATROPIUM/ALBUTEROL 0.5-3(2.5)MG/3ML NEB INH PRN ×2 (00:15→04:19)
[2017-03-17] MEDS: NOREPINEPHRINE 16 MG in DEXT 5% WATER 234 ML IV PRN (04:36)
[2017-03-17 05:32] LABS: HEMATOCRIT. 32.8 % (36.0-48.0); MEAN CORPUSCULAR HEMOGLOBIN 31.4 pg (28.0-32.0); MEAN CORPUSCULAR VOLUME 93.6 fL (81.0-99.0); MEAN PLATELET VOLUME 10.7 fl (7.4-10.4); PLATELET 95 x1000/uL (130-400); RED CELL DISTRIBUTION WIDTH 20.1 % (11.6-14.6)
[2017-03-17 06:46] LABS: CARBON DIOXIDE 33 mEq/L (21-32); CHLORIDE 96 mEq/L (98-107); PHOSPHORUS 1.6 mg/dL (2.5-4.9)
[2017-03-17 07:53] LABS: PLATELET ESTIMATE DECREASED
[2017-03-17 08:15] LABS: BG BASE EXCESS 9.9 mmol/L (-2.0-2.0); BG CARBOXYHEMOGLOBIN 0.9 % (0.5-1.5); BG DEOXYHEMOGLOBIN 1.8 % (0.0-5.0); BG FRACTION INSPIRED OXYGEN 30; BG METHEMOGLOBIN 0.1 % (0.0-1.5); BG OXYGEN SATURATION 98.2 % (92.0-98.5); BG OXYHEMOGLOBIN 97.2 % (94.0-97.0); BG PCO2 49.7 mmHg (35.0-45.0); BG PH 7.466 (7.350-7.450); BG PO2 107.8 mmHg (75.0-100.0); BG PRESSURE SUPPORT 10; BG SAMPLE SITE RIGHT BRACHIAL; BG TIDAL VOLUME(mL) 500 mL; BG TOTAL HEMOGLOBIN 11.4 g/dL (12.0-18.0); BG VENT MODE VENT - SIMV; BG VENT RATE 10 set
[2017-03-17] MEDS: POTASSIUM CHLORIDE 20MEQ/PACKET NG SCH (09:56)
[2017-03-17] MEDS: DIPHENHYDRAMINE 50MG/ML VIAL IV PRN ×2 (09:57→15:30)
[2017-03-17] MEDS: PANTOPRAZOLE SODIUM 40 MG/VIAL IV SCH (09:57)
[2017-03-17] MEDS: FUROSEMIDE 40MG/4ML VIAL IVP SCH (09:57)
[2017-03-17] MEDS: MAGNESIUM OXIDE 400MG TABLET NG SCH (09:57)
[2017-03-17] MEDS: APIXABAN 2.5 MG TABLET PO SCH ×2 (09:57→20:39)
[2017-03-17] MEDS: SODIUM HYPOCHLORITE (0.25%) 480ML SOLUTION (HALF STRENGTH) TOP SCH (09:57)
[2017-03-17] MEDS ORDERED: POTASSIUM PHOS,M-BASIC-D-BASIC 20 MMOL in DEXT 5% WATER 243.3333 ML IV NR ×2 (10:30→21:00)
[2017-03-17] MEDS: MORPHINE SULFATE 4 MG/ML CPJ (NOT FOR IM USE) IV PRN ×2 (15:30→20:39)
[2017-03-17] MEDS: LORAZEPAM 2MG/ML CPJ IV PRN (20:39)
[2017-03-18] VITALS (35 sets, daily range): BP systolic 87–130; BP diastolic 48–87
[2017-03-18] MEDS: IPRATROPIUM/ALBUTEROL 0.5-3(2.5)MG/3ML NEB INH PRN ×2 (04:44→11:48)
[2017-03-18 05:14] LABS: HEMATOCRIT. 30.9 % (36.0-48.0); HEMOGLOBIN. 10.2 g/dL (12.0-16.0); MEAN CORPUSCULAR HEMOGLOBIN 31.1 pg (28.0-32.0); MEAN CORPUSCULAR VOLUME 93.9 fL (81.0-99.0); MEAN PLATELET VOLUME 9.5 fl (7.4-10.4); PLATELET 137 x1000/uL (130-400); RED BLOOD CELL COUNT 3.29 mill/uL (4.2-5.4); RED CELL DISTRIBUTION WIDTH 19.7 % (11.6-14.6)
[2017-03-18 05:33] LABS: CARBON DIOXIDE 35 mEq/L (21-32); CHLORIDE 93 mEq/L (98-107); PHOSPHORUS 2.7 mg/dL (2.5-4.9)
[2017-03-18 07:17] LABS: PLATELET ESTIMATE NORMAL
[2017-03-18 07:31] LABS: BG BASE EXCESS 6.8 mmol/L (-2.0-2.0); BG CARBOXYHEMOGLOBIN 0.8 % (0.5-1.5); BG DEOXYHEMOGLOBIN 2.4 % (0.0-5.0); BG HCO3 ACT 30.9 mmol/L (22.0-26.0); BG METHEMOGLOBIN 0.2 % (0.0-1.5); BG OXYGEN SATURATION 97.6 % (92.0-98.5); BG OXYHEMOGLOBIN 96.6 % (94.0-97.0); BG PCO2 42.7 mmHg (35.0-45.0); BG PH 7.478 (7.350-7.450); BG PO2 95.8 mmHg (75.0-100.0); BG SAMPLE SITE RIGHT BRACHIAL; BG TIDAL VOLUME(mL) 500 mL; BG TOTAL HEMOGLOBIN 10.2 g/dL (12.0-18.0); BG VENT MODE VENT - SIMV; BG VENT RATE 10 set
[2017-03-18] MEDS: MAGNESIUM OXIDE 400MG TABLET NG SCH (08:18)
[2017-03-18] MEDS: APIXABAN 2.5 MG TABLET PO SCH ×2 (08:18→21:29)
[2017-03-18] MEDS: PANTOPRAZOLE SODIUM 40 MG/VIAL IV SCH (08:18)
[2017-03-18] MEDS: FUROSEMIDE 40MG/4ML VIAL IVP SCH (08:18)
[2017-03-18] MEDS: SODIUM HYPOCHLORITE (0.25%) 480ML SOLUTION (HALF STRENGTH) TOP SCH (08:21)
[2017-03-18] MEDS: CARVEDILOL 3.125 MG TABLET PO SCH ×2 (09:00→21:00)
[2017-03-18] MEDS ORDERED: POTASSIUM PHOS,M-BASIC-D-BASIC 20 MMOL in DEXT 5% WATER 243.3333 ML IV SCH (09:30)
[2017-03-18] MEDS: MORPHINE SULFATE 4 MG/ML CPJ (NOT FOR IM USE) IV PRN ×2 (15:43→23:45)
[2017-03-18] MEDS: LORAZEPAM 2MG/ML CPJ IV PRN (21:29)
[2017-03-19] VITALS (34 sets, daily range): BP systolic 81–118; BP diastolic 39–83
[2017-03-19 06:45] LABS: HEMATOCRIT. 29.4 % (36.0-48.0); HEMOGLOBIN. 9.7 g/dL (12.0-16.0); MEAN CORPUSCULAR HEMOGLOBIN 30.7 pg (28.0-32.0); MEAN PLATELET VOLUME 9.5 fl (7.4-10.4); PLATELET 167 x1000/uL (130-400); RED BLOOD CELL COUNT 3.16 mill/uL (4.2-5.4); RED CELL DISTRIBUTION WIDTH 19.6 % (11.6-14.6)
[2017-03-19 07:21] LABS: CHLORIDE 95 mEq/L (98-107)
[2017-03-19 07:26] LABS: CARBON DIOXIDE 36 mEq/L (21-32); PHOSPHORUS 2.8 mg/dL (2.5-4.9)
[2017-03-19 07:49] LABS: NUCLEATED RED BLOOD CELLS 1 /100 WBC; PLATELET ESTIMATE NORMAL
[2017-03-19] MEDS: MAGNESIUM OXIDE 400MG TABLET NG SCH (08:54)
[2017-03-19] MEDS: FUROSEMIDE 40MG/4ML VIAL IVP SCH (08:54)
[2017-03-19] MEDS: APIXABAN 2.5 MG TABLET PO SCH ×2 (08:54→21:13)
[2017-03-19] MEDS: PANTOPRAZOLE SODIUM 40 MG/VIAL IV SCH (08:54)
[2017-03-19] MEDS: SODIUM HYPOCHLORITE (0.25%) 480ML SOLUTION (HALF STRENGTH) TOP SCH (08:55)
[2017-03-19] MEDS: CARVEDILOL 3.125 MG TABLET PO SCH ×2 (09:00→14:06)
[2017-03-19] MEDS: DIPHENHYDRAMINE 50MG/ML VIAL IV PRN (23:09)
[2017-03-20] VITALS (26 sets, daily range): BP systolic 92–122; BP diastolic 53–80
[2017-03-20] MEDS: MORPHINE SULFATE 4 MG/ML CPJ (NOT FOR IM USE) IV PRN (00:59)
[2017-03-20 06:06] LABS: HEMATOCRIT. 31.2 % (36.0-48.0); HEMOGLOBIN. 10.3 g/dL (12.0-16.0); MEAN CORPUSCULAR HEMOGLOBIN 31.1 pg (28.0-32.0); MEAN CORPUSCULAR VOLUME 93.9 fL (81.0-99.0); MEAN PLATELET VOLUME 9.2 fl (7.4-10.4); PLATELET 198 x1000/uL (130-400); RED BLOOD CELL COUNT 3.32 mill/uL (4.2-5.4); RED CELL DISTRIBUTION WIDTH 19.4 % (11.6-14.6)
[2017-03-20 07:17] LABS: CARBON DIOXIDE 34 mEq/L (21-32); CHLORIDE 95 mEq/L (98-107); PHOSPHORUS 2.3 mg/dL (2.5-4.9)
[2017-03-20 07:39] LABS: PLATELET ESTIMATE NORMAL
[2017-03-20 07:51] LABS: BG CARBOXYHEMOGLOBIN 1.1 % (0.5-1.5); BG CPAP (cmH2O) 0 cm(H2O); BG HCO3 ACT 37.6 mmol/L (22.0-26.0); BG METHEMOGLOBIN 0.3 % (0.0-1.5); BG OXYHEMOGLOBIN 96.6 % (94.0-97.0); BG PCO2 54.1 mmHg (35.0-45.0); BG PO2 102.8 mmHg (75.0-100.0); BG SAMPLE SITE RIGHT BRACHIAL; BG VENT MODE VENT - CPAP
[2017-03-20] MEDS: PANTOPRAZOLE SODIUM 40 MG/VIAL IV SCH (08:52)
[2017-03-20] MEDS: FUROSEMIDE 40MG/4ML VIAL IVP SCH (08:53)
[2017-03-20] MEDS: SODIUM HYPOCHLORITE (0.25%) 480ML SOLUTION (HALF STRENGTH) TOP SCH (08:53)
[2017-03-20] MEDS: MAGNESIUM OXIDE 400MG TABLET NG SCH (08:53)
[2017-03-20] MEDS: CARVEDILOL 3.125 MG TABLET PO SCH ×2 (08:53→21:00)
[2017-03-20] MEDS: APIXABAN 2.5 MG TABLET PO SCH ×2 (08:53→21:30)
[2017-03-20] MEDS ORDERED: IPRATROPIUM/ALBUTEROL 0.5-3(2.5)MG/3ML NEB HHN PRN (09:15)
[2017-03-20] MEDS ORDERED: SODIUM PHOS,M-BASIC-D-BASIC 15 MM in DEXT 5% WATER 245 ML IV SCH (10:00)
[2017-03-20 11:13] LABS: BG BASE EXCESS 11.5 mmol/L (-2.0-2.0); BG CARBOXYHEMOGLOBIN 0.8 % (0.5-1.5); BG DEOXYHEMOGLOBIN 2.8 % (0.0-5.0); BG HCO3 ACT 38.3 mmol/L (22.0-26.0); BG METHEMOGLOBIN 0.3 % (0.0-1.5); BG OXYGEN SATURATION 97.2 % (92.0-98.5); BG OXYHEMOGLOBIN 96.1 % (94.0-97.0); BG PCO2 61.8 mmHg (35.0-45.0); BG PO2 93.8 mmHg (75.0-100.0); BG SAMPLE SITE RIGHT BRACHIAL; BG TOTAL HEMOGLOBIN 11.5 g/dL (12.0-18.0); BG VENT MODE MASK - AEROSOL
[2017-03-20] MEDS: LACTOBACILLUS GG CAPSULE PO SCH (12:11)
[2017-03-20] MEDS: IPRATROPIUM/ALBUTEROL 0.5-3(2.5)MG/3ML NEB HHN SCH ×3 (13:15→20:43)
[2017-03-21] VITALS (23 sets, daily range): BP systolic 36–130; BP diastolic 12–78
[2017-03-21] MEDS: IPRATROPIUM/ALBUTEROL 0.5-3(2.5)MG/3ML NEB HHN SCH ×6 (00:35→20:24)
[2017-03-21 05:54] LABS: HEMATOCRIT. 34.2 % (36.0-48.0); HEMOGLOBIN. 11.3 g/dL (12.0-16.0); MEAN CORPUSCULAR HEMOGLOBIN 31.6 pg (28.0-32.0); MEAN CORPUSCULAR VOLUME 95.7 fL (81.0-99.0); MEAN PLATELET VOLUME 10.2 fl (7.4-10.4); PLATELET 231 x1000/uL (130-400); RED BLOOD CELL COUNT 3.57 mill/uL (4.2-5.4); RED CELL DISTRIBUTION WIDTH 19.3 % (11.6-14.6)
[2017-03-21 07:20] LABS: CARBON DIOXIDE 34 mEq/L (21-32); CHLORIDE 93 mEq/L (98-107)
[2017-03-21 07:24] LABS: PHOSPHORUS 3.4 mg/dL (2.5-4.9)
[2017-03-21 08:11] LABS: PLATELET ESTIMATE NORMAL
[2017-03-21] MEDS: MAGNESIUM OXIDE 400MG TABLET NG SCH (08:51)
[2017-03-21] MEDS: FUROSEMIDE 40MG/4ML VIAL IVP SCH (08:51)
[2017-03-21] MEDS: LACTOBACILLUS GG CAPSULE PO SCH (08:51)
[2017-03-21] MEDS: PANTOPRAZOLE SODIUM 40 MG/VIAL IV SCH (08:51)
[2017-03-21] MEDS: CARVEDILOL 3.125 MG TABLET PO SCH ×2 (08:51→22:55)
[2017-03-21] MEDS: APIXABAN 2.5 MG TABLET PO SCH ×2 (08:51→22:54)
[2017-03-21] MEDS ORDERED: POTASSIUM CHLORIDE 20MEQ TABLET SR PO SCH (11:30)
[2017-03-21] MEDS ORDERED: HYDROCODONE/ACETAMINOPHEN 5/325MG TABLET PO PRN (17:15)
[2017-03-21] MEDS ORDERED: MORPHINE SULFATE 4 MG/ML CPJ (NOT FOR IM USE) IV PRN ×2 (17:15)
[2017-03-21] MEDS: DIGOXIN 125MCG TABLET PO SCH (17:37)
[2017-03-21] MEDS: ATORVASTATIN CALCIUM 10MG TABLET PO SCH (22:54)
[2017-03-22] VITALS (13 sets, daily range): BP systolic 97–127; BP diastolic 55–83
[2017-03-22] MEDS: IPRATROPIUM/ALBUTEROL 0.5-3(2.5)MG/3ML NEB HHN SCH ×6 (00:08→20:28)
[2017-03-22 08:50] LABS: BASOPHILS % 1.2 % (0.0-2.0); EOSINOPHILS % 1.5 % (0.0-5.0); HEMATOCRIT. 32.1 % (36.0-48.0); HEMOGLOBIN. 10.5 g/dL (12.0-16.0); LYMPHOCYTES % 11.3 % (20.0-50.0); MEAN CORPUSCULAR HEMOGLOBIN 30.9 pg (28.0-32.0); MEAN CORPUSCULAR VOLUME 94.2 fL (81.0-99.0); MEAN PLATELET VOLUME 8.7 fl (7.4-10.4); MONOCYTES % 14.1 % (2.0-8.0); NEUTROPHILS % 71.9 % (40.0-76.0); PLATELET 233 x1000/uL (130-400); RED BLOOD CELL COUNT 3.41 mill/uL (4.2-5.4); RED CELL DISTRIBUTION WIDTH 19.3 % (11.6-14.6)
[2017-03-22] MEDS: APIXABAN 2.5 MG TABLET PO SCH ×3 (09:00→20:59)
[2017-03-22] MEDS: CARVEDILOL 3.125 MG TABLET PO SCH ×2 (09:00→20:59)
[2017-03-22] MEDS: FUROSEMIDE 40MG/4ML VIAL IVP SCH ×2 (09:00→16:17)
[2017-03-22] MEDS: MAGNESIUM OXIDE 400MG TABLET NG SCH (09:23)
[2017-03-22] MEDS: LACTOBACILLUS GG CAPSULE PO SCH (09:23)
[2017-03-22] MEDS: PANTOPRAZOLE SODIUM 40 MG/VIAL IV SCH (09:23)
[2017-03-22 09:58] LABS: CARBON DIOXIDE 38 mEq/L (21-32); CHLORIDE 95 mEq/L (98-107)
[2017-03-22] MEDS: DIGOXIN 125MCG TABLET PO SCH (18:29)
[2017-03-22] MEDS: ATORVASTATIN CALCIUM 10MG TABLET PO SCH (20:59)
[2017-03-23] VITALS (12 sets, daily range): BP systolic 90–130; BP diastolic 49–82
[2017-03-23] MEDS: IPRATROPIUM/ALBUTEROL 0.5-3(2.5)MG/3ML NEB HHN SCH ×5 (00:21→15:12)
[2017-03-23 06:37] LABS: BASOPHILS % 0.8 % (0.0-2.0); HEMATOCRIT. 35.9 % (36.0-48.0); HEMOGLOBIN. 11.9 g/dL (12.0-16.0); LYMPHOCYTES % 7.8 % (20.0-50.0); MEAN CORPUSCULAR HEMOGLOBIN 31.4 pg (28.0-32.0); MEAN CORPUSCULAR VOLUME 94.7 fL (81.0-99.0); MEAN PLATELET VOLUME 9.1 fl (7.4-10.4); MONOCYTES % 8.2 % (2.0-8.0); NEUTROPHILS % 82.2 % (40.0-76.0); PLATELET 264 x1000/uL (130-400); RED BLOOD CELL COUNT 3.79 mill/uL (4.2-5.4)
[2017-03-23] MEDS: PANTOPRAZOLE SODIUM 40 MG/VIAL IV SCH (08:38)
[2017-03-23 08:39] LABS: CARBON DIOXIDE 35 mEq/L (21-32); CHLORIDE 92 mEq/L (98-107); PHOSPHORUS 2.5 mg/dL (2.5-4.9)
[2017-03-23] MEDS: MAGNESIUM OXIDE 400MG TABLET NG SCH (08:39)
[2017-03-23] MEDS: LACTOBACILLUS GG CAPSULE PO SCH (08:39)
[2017-03-23] MEDS: FUROSEMIDE 40MG/4ML VIAL IVP SCH (08:39)
[2017-03-23] MEDS: CARVEDILOL 3.125 MG TABLET PO SCH (08:39)
[2017-03-23] MEDS: APIXABAN 2.5 MG TABLET PO SCH (08:39)
[2017-03-23] MEDS ORDERED: AMLODIPINE 2.5MG TABLET PO SCH (10:15)
[2017-03-23] MEDS: DIGOXIN 125MCG TABLET PO SCH (17:36)
== END 2017-03-23 22:41 | DRG 870 ==
LOC: ER 21:06 → 6WST 23:08 → EDBEDREQ 23:10 → ENRESERV 03-11 00:13 → 3WST 03-11 07:25 → CVICU 03-11 07:40 → 5EST 03-22 03:25
PROVIDERS: ADMIT Internal Medicine; ATTEND Internal Medicine
PROC: 5A1955Z Respiratory Ventilation, Greater than 96 Consecutive Hours (ICD-10-PCS; principal; 2017-03-11)
PROC: 5A12012 Performance of Cardiac Output, Single, Manual (ICD-10-PCS; 2017-03-11)
PROC: 0BH17EZ Insertion of Endotracheal Airway into Trachea, Via Natural or Artificial Opening (ICD-10-PCS; 2017-03-11)
PROC: 5A09357 Assistance with Respiratory Ventilation, Less than 24 Consecutive Hours, Continuous Positive Airway Pressure (ICD-10-PCS; 2017-03-11)
PROC: 02HV33Z Insertion of Infusion Device into Superior Vena Cava, Percutaneous Approach (ICD-10-PCS; 2017-03-11)
PROC: B548ZZA Ultrasonography of Superior Vena Cava, Guidance (ICD-10-PCS; 2017-03-11)
PROC: 0HBKXZZ Excision of Right Lower Leg Skin, External Approach (ICD-10-PCS; 2017-03-14)
DX: A41.9 Sepsis, unspecified organism (principal); J96.00 Acute respiratory failure, unspecified whether with hypoxia or hypercapnia; I46.9 Cardiac arrest, cause unspecified; N17.0 Acute kidney failure with tubular necrosis; E43 Unspecified severe protein-calorie malnutrition; E87.4 Mixed disorder of acid-base balance; Z99.11 Dependence on respirator [ventilator] status; J18.1 Lobar pneumonia, unspecified organism; D68.9 Coagulation defect, unspecified; E83.39 Other disorders of phosphorus metabolism; I13.0 Hypertensive heart and chronic kidney disease with heart failure and stage 1 through stage 4 chronic kidney disease, or unspecified chronic kidney disease; I50.22 Chronic systolic (congestive) heart failure; L97.919 Non-pressure chronic ulcer of unspecified part of right lower leg with unspecified severity; L03.119 Cellulitis of unspecified part of limb; I42.9 Cardiomyopathy, unspecified; J44.0 Chronic obstructive pulmonary disease with (acute) lower respiratory infection; Z68.1 Body mass index [BMI] 19.9 or less, adult; D69.6 Thrombocytopenia, unspecified; I48.2 Chronic atrial fibrillation; I27.20 Pulmonary hypertension, unspecified; N18.2 Chronic kidney disease, stage 2 (mild); D64.9 Anemia, unspecified; S81.801A Unspecified open wound, right lower leg, initial encounter; I95.9 Hypotension, unspecified; I08.1 Rheumatic disorders of both mitral and tricuspid valves; C44.91 Basal cell carcinoma of skin, unspecified; E87.8 Other disorders of electrolyte and fluid balance, not elsewhere classified; Z60.2 Problems related to living alone; X58.XXXA Exposure to other specified factors, initial encounter; E78.5 Hyperlipidemia, unspecified; E83.42 Hypomagnesemia; E87.6 Hypokalemia; I25.10 Atherosclerotic heart disease of native coronary artery without angina pectoris; I73.9 Peripheral vascular disease, unspecified; I87.2 Venous insufficiency (chronic) (peripheral); Z79.01 Long term (current) use of anticoagulants; Z85.3 Personal history of malignant neoplasm of breast; Z86.73 Personal history of transient ischemic attack (TIA), and cerebral infarction without residual deficits; Z92.21 Personal history of antineoplastic chemotherapy; Z79.899 Other long term (current) drug therapy; Y93.89 Activity, other specified; Y92.89 Other specified places as the place of occurrence of the external cause; Y99.8 Other external cause status
CPT/HCPCS: 31500; 36415; 36569; 36600; 71010; 76770; 76937; 80048; 80053; 80076; 80202; 81001; 82248; 82375; 82550; 82553; 82805; 82962; 83735; 83880; 84100; 84145; 84443; 84484; 85025; 85610; 85651; 85730; 86705; 86709; 86803; 86850; 86900; 87040; 87070; 87086; 87340; 92610; 93005; 93306; 93923; 93970; 93971; 94002; 94003; 94640; 94660; 96365; 96367; 96375; 99285; A6261; C1725; C9113; J0171; J0330; J0461; J1200; J1940; J2060; J2270; J2543; J3370; J3475; J3480; J3490; J7030; J7050; J7060; J7620; P9047; A4315